=== PATIENT | male | born 1945 | race Caucasian/White ===

== ENCOUNTER → 2019-08-23 | Outpatient (CLI) | payer MEDICARE ==
[~2019-08-23] MED LIST: ACYC800 PO; ALBU90OI INH; ASPI81EC; ATOR40TA PO; AZIT250 PO; CILO100 PO; CIPR500 PO; ENAL20 PO; ENAL5; GLYMET5 PO; HYDHOMSY PO; INSDET100 SQ; INSUASPI SC; LEVFLO500 PO; LOVA20; NABU750; OPTLUBOPOA OD; PRED20 PO; PROACE100 PO; PROM25 PO; VALD20 PO; VICTOZA SQ; [UNRECOGNIZED DRUG - REMARK]; [UNRECOGNIZED DRUG - REMARK]
== END | disposition home or self-care (01) ==
LOC: LAB SHORT 11:19 → LAB EV 11:19
DX: M25.562 Pain in left knee (principal)
CPT/HCPCS: 84550; 85651

== ENCOUNTER 2020-08-27 11:47 | Emergency (ER) | payer MEDICARE ==
[~2020-08-27] VITALS: Ht 165.1 cm; Wt 106.6 kg
[~2020-08-27 11:47] MED LIST changes: +ASPI81CH PO; -ASPI81EC
[2020-08-27 12:47] LABS: BASOPHILS ABSOLUTE AUTO 0.05 K/mm3 (0.00-0.23); BASOPHILS PERCENT AUTO 0 % (0-2); EOSINOPHILS ABSOLUTE AUTO 0.34 K/mm3 (0.00-0.68); EOSINOPHILS PERCENT AUTO 3 % (0-6); Hematocrit 32.2 % (37.0-53.0); IMMATURE GRAN ABSOLUTE AUTO 0.09 K/mm3 (0.00-0.10); IMMATURE GRAN PERCENT AUTO 1 % (0-1); LYMPHOCYTES ABSOLUTE AUTO 1.67 K/mm3 (0.84-5.20); LYMPHOCYTES PERCENT AUTO 14 % (21-46); MONOCYTES ABSOLUTE AUTO 1.05 K/mm3 (0.16-1.47); MONOCYTES PERCENT AUTO 9 % (4-13); Mean Corpuscular HGB 20.8 pg (26.0-34.0); Mean Corpuscular Volume 74 fL (80-100); Mean Platelet Volume 10.2 fL (9.1-12.4); NEUTROPHILS ABSOLUTE AUTO 8.58 K/mm3 (1.96-9.15); NEUTROPHILS PERCENT AUTO 73 % (41-73); NRBC ABSOLUTE 0.02 K/mm3 (0.00-0.02); NRBC Auto 0.2 /100 WBC (0.0-0.2); Platelet Count 432 K/mm3 (150-400); RDW Coefficient Variation 17.2 % (11.7-14.2); RDW Standard Deviation 45.8 fL (35.1-46.3); Red Blood Cell Count 4.33 M/mm3 (4.30-5.90); White Blood Cell Count 11.78 K/mm3 (4.00-11.30)
[2020-08-27 13:04] LABS: Alanine Aminotransfer (ALT/SGP 22 U/L (12-78); Albumin, Blood 3.1 g/dL (3.4-5.0); Albumin/Globulin Ratio 0.8 (0.8-1.8); Alk Phos 51 U/L (50-136); Anion Gap 6 mmol/L (6-16); Aspartate Aminotrans (AST/SGOT 14 U/L (12-37); Bilirubin, Total 0.3 mg/dL (0.1-1.0); Blood Urea Nitrogen 18 mg/dL (8-24); Bun/Creatinine Ratio 25.9 (12.0-20.0); CO2, Blood 29 mmol/L (21-32); Calcium, Blood 8.7 mg/dL (8.5-10.1); Chloride, Blood 106 mmol/L (98-108); Globulin, Blood 4.1 g/dL (2.2-4.0); Glomerular Filtration Rate >60 (60-); Glucose, Blood 167 mg/dL (70-99); Potassium, Blood 4.3 mmol/L (3.5-5.5); Sodium, Blood 141 mmol/L (136-145); Total Protein, Blood 7.2 g/dL (6.4-8.2)
[2020-08-27] MEDS ORDERED: PLAVIX75 MG PO (13:10)
[2020-08-27] MEDS ORDERED: METFORMIN HCL500 M3 PO (13:10)
[2020-08-27] MEDS ORDERED: LEVEMIR FL100 UNIT/2 SC (13:12)
[2020-08-27] MEDS ORDERED: TAMSULOSIN HCL0.4 M1 PO (13:13)
[2020-08-27] MEDS ORDERED: GLIMEPIRIDE2 M2 PO (13:15)
[2020-08-27] MEDS ORDERED: METOPROLOL TART25 MG PO (13:16)
[2020-08-27] MEDS ORDERED: PANTOPRAZOLE SO20 M2 PO (13:16)
[2020-08-27] MEDS ORDERED: BUME1 PO (13:17)
[2020-08-27] MEDS ORDERED: KLOR-CON 1010 ME1 PO (13:17)
[2020-08-27] MEDS ORDERED: BUME2 PO (13:49)
== END 2020-08-27 14:11 | disposition home or self-care (01) ==
LOC: ER 11:47
PROVIDERS: Emergency Medicine
DX: I50.9 Heart failure, unspecified (principal); E11.9 Type 2 diabetes mellitus without complications; Z79.02 Long term (current) use of antithrombotics/antiplatelets; Z79.84 Long term (current) use of oral hypoglycemic drugs; Z79.899 Other long term (current) drug therapy; Z20.822 Contact with and (suspected) exposure to COVID-19; Z86.718 Personal history of other venous thrombosis and embolism; Z87.891 Personal history of nicotine dependence
CPT/HCPCS: 36415; 71045; 80053; 83880; 84484; 85025; 93005; 93010; 96374; 99285-25

== ENCOUNTER 2020-10-09 10:27 | Inpatient (IN) | payer MEDICARE ==
[~2020-10-09] VITALS: Ht 162.6 cm; Wt 110.0 kg
[~2020-10-09 10:27] MED LIST changes: +BUME1 PO; +BUME2 PO; +GLIMEPIRIDE2 M2 PO; +KLOR-CON 1010 ME1 PO; +LEVEMIR FL100 UNIT/2 SC; +METFORMIN HCL500 M3 PO; +METOPROLOL TART25 MG PO; +PANTOPRAZOLE SO20 M2 PO; +PLAVIX75 MG PO; +TAMSULOSIN HCL0.4 M1 PO
[2020-10-09 11:16] LABS: BASOPHILS ABSOLUTE AUTO 0.03 K/mm3 (0.00-0.23); BASOPHILS PERCENT AUTO 0 % (0-2); EOSINOPHILS ABSOLUTE AUTO 0.06 K/mm3 (0.00-0.68); EOSINOPHILS PERCENT AUTO 0 % (0-6); Hemoglobin 9.2 g/dL (13.5-17.5); IMMATURE GRAN ABSOLUTE AUTO 0.07 K/mm3 (0.00-0.10); IMMATURE GRAN PERCENT AUTO 0 % (0-1); LYMPHOCYTES ABSOLUTE AUTO 0.28 K/mm3 (0.84-5.20); LYMPHOCYTES PERCENT AUTO 2 % (21-46); MONOCYTES ABSOLUTE AUTO 1.22 K/mm3 (0.16-1.47); MONOCYTES PERCENT AUTO 7 % (4-13); Mean Corpuscular HGB Conc 27.9 g/dL (31.5-36.5); Mean Corpuscular Volume 72 fL (80-100); Mean Platelet Volume 9.7 fL (9.1-12.4); NEUTROPHILS ABSOLUTE AUTO 16.06 K/mm3 (1.96-9.15); NEUTROPHILS PERCENT AUTO 91 % (41-73); NRBC ABSOLUTE 0.02 K/mm3 (0.00-0.02); NRBC Auto 0.1 /100 WBC (0.0-0.2); Platelet Count 465 K/mm3 (150-400); RDW Coefficient Variation 18.6 % (11.7-14.2); RDW Standard Deviation 47.1 fL (35.1-46.3); White Blood Cell Count 17.72 K/mm3 (4.00-11.30)
[2020-10-09] MEDS ORDERED: SPIRONOLACTONE50 MG PO (11:28)
[2020-10-09] MEDS ORDERED: LISI5 PO (11:29)
[2020-10-09 11:38] LABS: Alanine Aminotransfer (ALT/SGP 17 U/L (12-78); Albumin, Blood 3.3 g/dL (3.4-5.0); Albumin/Globulin Ratio 0.8 (0.8-1.8); Alk Phos 51 U/L (50-136); Anion Gap 6 mmol/L (6-16); Aspartate Aminotrans (AST/SGOT 8 U/L (12-37); Bilirubin, Total 0.7 mg/dL (0.1-1.0); Blood Urea Nitrogen 23 mg/dL (8-24); Bun/Creatinine Ratio 30.5 (12.0-20.0); CO2, Blood 25 mmol/L (21-32); Calcium, Blood 8.3 mg/dL (8.5-10.1); Chloride, Blood 107 mmol/L (98-108); Creatinine, Blood 0.75 mg/dL (0.60-1.20); Globulin, Blood 4.3 g/dL (2.2-4.0); Glomerular Filtration Rate >60 (60-); Glucose, Blood 205 mg/dL (70-99); Potassium, Blood 4.9 mmol/L (3.5-5.5); Sodium, Blood 138 mmol/L (136-145); Total Protein, Blood 7.6 g/dL (6.4-8.2); Troponin I 0.019 ng/mL (0.000-0.040)
[2020-10-09 12:00] LABS: Source, Urine Catheter
[2020-10-09 12:11] LABS: Appearance, Urine Clear (Clear); Bilirubin, Urine Neg (Neg); Blood, Urine 2+ (Neg); Color, Urine Yellow (P-Yellow); Glucose Qualitative, Urine Neg (Neg); Ketones, Urine Neg (Neg); Leukocyte Esterase, Urine Neg (Neg); Nitrite, Urine Neg (Neg); Protein, Urine 4+ (Neg); Urobilinogen, Urine NORM (Normal)
[2020-10-09 12:19] LABS: Bacteria Rare /hpf; Red Blood Cells, Urine 0-2 /hpf (0-2); Squamous Epithelial Cells Few /hpf (Few); White Blood Cells, Urine 0-2 /hpf (0-5)
[2020-10-09 15:32] LABS: U Amphetamine Screen Not Detected; U Barbituate Screen Not Detected; U Benzodiazapine Screen Not Detected; U Buprenorphine Screen Not Detected; U Cannabinoids Screen Not Detected; U Cocaine Screen Not Detected; U Methadone Screen Not Detected; U Methamphetamine Screen Not Detected; U Opiates Screen Not Detected; U Oxycodone Screen Not Detected; U Phencyclidine Screen Not Detected; U Propoxyphene Screen Not Detected
--- NOTE | 2020-10-09 19:05 | NUR ---
ASSUMED CARE RECEIVED BEDSIDE REPORT FROM FELIX RN; PT ALERT BUT CONFUSED; DAUGHTER AT BEDSIDE; VSS; DENIES CHEST PAIN; O2 SATS >93 ON RA; PT MOVING SPORADICALLY IN BED, PULLING AT CORDS AND LINES; AID AT BEDSIDE FOR REDIRECTING PT AND SAFETY; CALL LIGHT IN REACH; BED IN LOWEST POSITION.
[2020-10-09 19:39] LABS: Influenza A, PCR NEGATIVE (NEGATIVE); Influenza B, PCR NEGATIVE (NEGATIVE); Resp Syncytial Virus, PCR NEGATIVE (NEGATIVE); SARS-Cov-2 (COVID-19) PCR, MMC NEGATIVE (NEGATIVE)
--- NOTE | 2020-10-09 19:40 | NUR ---
SHIFT SUMMARY PT ARRIVED TO UNIT AT 1830. REPORT RECIEVED PRIOR TO TRANSFER TO UNIT. VS STABLE. COVID SWAB SENT TO LAB. NO CP OR PRESSURE REPORTED. DEPENDS IN PLACE. IV PATENT AND RUNNING, SEE EMAR. REPORT GIVEN TO STEFFANIE MAGANA.
[2020-10-10 04:16] LABS: BASOPHILS ABSOLUTE AUTO 0.02 K/mm3 (0.00-0.23); BASOPHILS PERCENT AUTO 0 % (0-2); Hematocrit 29.1 % (37.0-53.0); Hemoglobin 8.2 g/dL (13.5-17.5); LYMPHOCYTES ABSOLUTE AUTO 0.45 K/mm3 (0.84-5.20); LYMPHOCYTES PERCENT AUTO 4 % (21-46); MONOCYTES PERCENT AUTO 7 % (4-13); Mean Corpuscular HGB 20.1 pg (26.0-34.0); Mean Corpuscular HGB Conc 28.2 g/dL (31.5-36.5); Mean Corpuscular Volume 71 fL (80-100); Mean Platelet Volume 9.8 fL (9.1-12.4); NRBC ABSOLUTE 0.02 K/mm3 (0.00-0.02); NRBC Auto 0.2 /100 WBC (0.0-0.2); Platelet Count 384 K/mm3 (150-400); RDW Coefficient Variation 18.6 % (11.7-14.2); RDW Standard Deviation 47.6 fL (35.1-46.3); Red Blood Cell Count 4.08 M/mm3 (4.30-5.90); White Blood Cell Count 10.49 K/mm3 (4.00-11.30)
[2020-10-10 04:18] LABS: EOSINOPHILS ABSOLUTE AUTO 0.09 K/mm3 (0.00-0.68); EOSINOPHILS PERCENT AUTO 1 % (0-6); IMMATURE GRAN ABSOLUTE AUTO 0.04 K/mm3 (0.00-0.10); IMMATURE GRAN PERCENT AUTO 0 % (0-1); NEUTROPHILS ABSOLUTE AUTO 9.19 K/mm3 (1.96-9.15); NEUTROPHILS PERCENT AUTO 88 % (41-73)
[2020-10-10 04:34] LABS: Alanine Aminotransfer (ALT/SGP 15 U/L (12-78); Albumin, Blood 2.7 g/dL (3.4-5.0); Albumin/Globulin Ratio 0.8 (0.8-1.8); Alk Phos 37 U/L (50-136); Anion Gap 5 mmol/L (6-16); Aspartate Aminotrans (AST/SGOT 12 U/L (12-37); Bilirubin, Total 0.8 mg/dL (0.1-1.0); Blood Urea Nitrogen 29 mg/dL (8-24); Bun/Creatinine Ratio 31.6 (12.0-20.0); CO2, Blood 28 mmol/L (21-32); Calcium, Blood 7.5 mg/dL (8.5-10.1); Chloride, Blood 109 mmol/L (98-108); Creatinine, Blood 0.92 mg/dL (0.60-1.20); Globulin, Blood 3.5 g/dL (2.2-4.0); Glomerular Filtration Rate >60 (60-); Glucose, Blood 89 mg/dL (70-99); Potassium, Blood 3.9 mmol/L (3.5-5.5); Sodium, Blood 142 mmol/L (136-145); Total Protein, Blood 6.2 g/dL (6.4-8.2)
--- NOTE | 2020-10-10 07:58 | NUR ---
SHIFT SUMMARY PT A&O X 2; TURNS AND FIGITS OFTEN; PULLS AT TELE AND IV LINE AT TIMES; VSS; NSR W/ PAC NOTED ON TELE W/ HR 90'S; O2 SATS >93 ON RA; SOB INCREASES W/ LAYING FLAT; AID SAT IN ROOM W/ PT FOR SHIFT ENTIRETY FOR SAFETY; NOTIFIED PROVIDER PUSHPINDER APPROXIMATELY @ 2300 OF LACTIC ACID 2.3, NO NEW ORDERS; NEW ORDER FOR HALDOL FOR AGGITAITON GIVEN, ADMINISTERED 1 X THIS SHIFT W/ MINIMAL IMPROVEMENT; PT ATTEMTED TO HAVE A BM X 2; CALL LIGHT IN REACH; BED IN LOWEST POSITION; BED ALARM ON; REPORT GIVEN TO STEFFANIE GALICIA, AID IN ROOM.
--- NOTE | 2020-10-10 17:30 | NUR ---
SUMMARY PT HAS DONE WELL TODAY, HE IS ALERT, ORIENTED 2-3, ON ROOM AIR. PT IS CLEARING MENTALLY, HE WAS ABLE TO WORK WITH PT/OT TOODAY WITH NO PROBLEMS, UP TO THE BS CHAIR FOR AWHILE. PT'S DAUGHTER IN TO VISIT THIS AFTERNOON, BED/CHAIR ALARM IS ON FOR SAFETY. PT HAS BEEN CALLING FOR ASSISTANCE PRN. JANETH & REPORT TO FELTON VALIENTE
--- NOTE | 2020-10-11 04:35 | NUR ---
SHIFT SUMMARY PT WAS ALERT, PLEASENT, AND COOPERATIVE WITH CARE. ORIENTED TO SELF, PLACE, AND EVENT. FORGETFUL AT TIMES BUT IMPROVEMENT FROM DAY SHIFT PER REPORT. VITALS WERE STABLE WITH BP 120-140'S SYSTOLIC. HR 80-90'S, TELE SHOWING SINUS RHYTHM. O2 SATS >90% ON ROOM AIR, LUNGS CLEAR AND CORSE. PT ENCOURAGED TO COUGH AND DEEP BREATH, ABLE TO CLEAR MINIMAL SPUTUM. PT STATES HE IS BREATHING MUCH BETTER THAN BEFORE. PT HAD A QUIET UNEVENTFUL NIGHT.
[2020-10-11 10:19] LABS: Vancomycin, Trough 9.8 ug/mL (5.0-10.0)
--- NOTE | 2020-10-11 16:16 | NUR ---
Pt up in chair review with patient his needs and plan of care. At this time pt seeing his primary care only he has not followed up with a docket clerk and had other conuslts with nephrology or cardiac rehab. He lives in his own home his daughter stays with him and he still drives. He denies headache, ringing in his ears or balanace disturbance. He states his vision is stable he denies any falls. He was a little hesitant on the answer suspect he has had some close calls. He has had soem issues with dyspnea at times. He denies cuase aof didfficulty swallowing or tolerating food. He has had issues with constipation and fluid balance. He has struggles with voiding frequetly and tolerating diuretics. He does not weigh himself. He states he never has. We reviewed fluid balance and managing his congestive heart failure. We reviewed advance directive, code status and assigning a decsion maker. He struggled a little with talking to his daughter about his age and condition. Therputic conversation on helping his family know and respect his wishes for the rest of his life. Gave hism advanc directive and sami reddy information and lanrehnn to call your doctor for help. He does not have a BP cuff at home suggested he get one from his doctor. Offered to help talk to his daughter. We also talked about as he progresses through life getting home health visits so has continuity of care.
--- NOTE | 2020-10-11 17:06 | NUR ---
SUMMARY PT TRANSFERRED UP FROM PCU, ORIENTED PT TO ROOM AND CALL SYSTEM, EDUCATED PT TO USE THE CALL LIGHT, BED ALARM ON FOR SAFETY, WILL CONT TO MONITOR
--- NOTE | 2020-10-11 17:36 | NUR ---
TRANSFER ORDERS ACKNOWLEDGED; REPORT GIVEN TO STEFFANIE ARCINIEGA VIA PHONE AT 1621; PT TRANSFERRED TO ROOM 342 AT 1648 WITH TELEMETRY AND NO INFUSIONS VIA WHEELCHAIR ACCOMPANIED BY TECH AND PERSONAL EFFECTS.
--- NOTE | 2020-10-12 05:00 | NUR ---
SHIFT SUMMARY NO ACUTE CHANGES TO REPORT THIS SHIFT. PT HAS RESTED MOST OF THE NIGHT, A/OX3 BUT THERE APPEARS TO BE SOME SLIGHT CONFUSION AND FORGETFULNESS AT TIMES. BED ALARM IN PLACE FOR SAFETY. PT HAS DENIED PAIN, OR NEEDS WHEN ASKED. INCONTINENT OF URINE REQUIRING LINEN CHANGES. ASSESSMENT UNCHANGED, VITALS STABLE. BED IN LOWEST POSITION, CALL LIGHT WITHIN REACH.
[2020-10-12] MEDS ORDERED: DOCU100 PO (15:27)
[2020-10-12] MEDS ORDERED: IPRAT-ALBUT 0.5-3 ML INH (15:30)
[2020-10-12] MEDS ORDERED: MIRALAX17 GM PO (15:31)
== END 2020-10-12 17:44 | disposition home health service (06) | DRG 871 ==
LOC: ER 10:27 → ERHOLD 15:37 → PCU 15:37 → MEDS 10-11 17:02
PROVIDERS: Nurse Practitioner Acute Care; Pharmacist; Physician Assistant; ADMIT Hospitalist
DX: A41.9 Sepsis, unspecified organism (principal); G92 Toxic encephalopathy; I50.22 Chronic systolic (congestive) heart failure; R65.20 Severe sepsis without septic shock; Z20.822 Contact with and (suspected) exposure to COVID-19; N40.0 Benign prostatic hyperplasia without lower urinary tract symptoms; I25.10 Atherosclerotic heart disease of native coronary artery without angina pectoris; E11.9 Type 2 diabetes mellitus without complications; K21.9 Gastro-esophageal reflux disease without esophagitis; E78.5 Hyperlipidemia, unspecified; I48.0 Paroxysmal atrial fibrillation; Z95.1 Presence of aortocoronary bypass graft; I11.0 Hypertensive heart disease with heart failure; Z86.73 Personal history of transient ischemic attack (TIA), and cerebral infarction without residual deficits; Z79.82 Long term (current) use of aspirin; Z79.899 Other long term (current) drug therapy; Z79.4 Long term (current) use of insulin; Z87.891 Personal history of nicotine dependence; Z79.02 Long term (current) use of antithrombotics/antiplatelets; Z86.718 Personal history of other venous thrombosis and embolism
CPT/HCPCS: 0241U; 36415; 51701; 70450; 71045; 74177; 80053; 80202; 81001; 82140; 82947; 83605; 83880; 84145; 84484; 85025; 87040; 93005; 93010; 93970; 94640; 94760; 96361; 96365; 96366; 96372-59; 96375; 96376; 97110; 97116; 97162; 97166; 97535; 99285-25; A9270; A9270-GY; C9113; J0290; J0696; J1630; J1650; J1940; J2060; J3370; J7030; J7050; Q9967

== ENCOUNTER 2021-01-16 10:54 | Observation (INO) | payer OTHER, MEDICARE ==
[~2021-01-16] VITALS: Ht 162.6 cm; Wt 116.5 kg
[~2021-01-16 10:54] MED LIST changes: -ASPI81CH PO; +Aspir 8181 MG PO; +DOCU100 PO; +IPRAT-ALBUT 0.5-3 ML INH; +LISI5 PO; +MIRALAX17 GM PO; +PANT40 PO; -PANTOPRAZOLE SO20 M2 PO; +SPIRONOLACTONE50 MG PO
[2021-01-16 11:50] LABS: Alanine Aminotransfer (ALT/SGP 16 U/L (12-78); Albumin, Blood 2.7 g/dL (3.4-5.0); Albumin/Globulin Ratio 0.6 (0.8-1.8); Alk Phos 49 U/L (50-136); Anion Gap 6 mmol/L (6-16); Aspartate Aminotrans (AST/SGOT 12 U/L (12-37); Bilirubin, Total 0.6 mg/dL (0.1-1.0); Blood Urea Nitrogen 16 mg/dL (8-24); Bun/Creatinine Ratio 20.7 (12.0-20.0); CO2, Blood 27 mmol/L (21-32); Calcium, Blood 8.8 mg/dL (8.5-10.1); Chloride, Blood 105 mmol/L (98-108); Creatinine, Blood 0.77 mg/dL (0.60-1.20); Globulin, Blood 4.3 g/dL (2.2-4.0); Glomerular Filtration Rate >60 (60-); Glucose, Blood 179 mg/dL (70-99); Potassium, Blood 4.7 mmol/L (3.5-5.5); Sodium, Blood 138 mmol/L (136-145)
[2021-01-16] MEDS ORDERED: NORTRIPTYLINE H25 M6 PO (12:19)
[2021-01-16 12:37] LABS: BASOPHILS ABSOLUTE AUTO 0.05 K/mm3 (0.00-0.23); BASOPHILS PERCENT AUTO 0 % (0-2); EOSINOPHILS ABSOLUTE AUTO 0.07 K/mm3 (0.00-0.68); EOSINOPHILS PERCENT AUTO 0 % (0-6); Hematocrit 32.5 % (37.0-53.0); Hemoglobin 9.4 g/dL (13.5-17.5); IMMATURE GRAN ABSOLUTE AUTO 0.23 K/mm3 (0.00-0.10); IMMATURE GRAN PERCENT AUTO 1 % (0-1); LYMPHOCYTES ABSOLUTE AUTO 1.29 K/mm3 (0.84-5.20); LYMPHOCYTES PERCENT AUTO 5 % (21-46); MONOCYTES ABSOLUTE AUTO 1.43 K/mm3 (0.16-1.47); MONOCYTES PERCENT AUTO 6 % (4-13); Mean Corpuscular HGB 20.3 pg (26.0-34.0); Mean Corpuscular HGB Conc 28.9 g/dL (31.5-36.5); Mean Corpuscular Volume 70 fL (80-100); Mean Platelet Volume 10.9 fL (9.1-12.4); NEUTROPHILS ABSOLUTE AUTO 20.72 K/mm3 (1.96-9.15); NEUTROPHILS PERCENT AUTO 87 % (41-73); Platelet Count 473 K/mm3 (150-400); RDW Coefficient Variation 18.8 % (11.7-14.2); RDW Standard Deviation 46.5 fL (35.1-46.3); Red Blood Cell Count 4.62 M/mm3 (4.30-5.90); White Blood Cell Count 23.79 K/mm3 (4.00-11.30)
[2021-01-16 15:22] LABS: Source, Urine Catheter
[2021-01-16 15:30] LABS: Appearance, Urine Clear (Clear); Bilirubin, Urine Neg (Neg); Blood, Urine 2+ (Neg); Color, Urine Yellow (P-Yellow); Glucose Qualitative, Urine 1+ (Neg); Ketones, Urine Neg (Neg); Leukocyte Esterase, Urine Neg (Neg); Nitrite, Urine Neg (Neg); Protein, Urine 4+ (Neg); Specific Gravity, Urine 1.015 (1.003-1.022); Urobilinogen, Urine NORM (Normal); pH, Urine 6.5 (5.0-8.0)
[2021-01-16] MEDS ORDERED: PREGABALIN100 MG PO (15:52)
[2021-01-16 15:54] LABS: Bacteria Few /hpf; Squamous Epithelial Cells Rare /hpf (Few); White Blood Cells, Urine 0-2 /hpf (0-5)
[2021-01-16 15:55] LABS: Hyaline Casts 0-2 /lpf (0-2)
[2021-01-16] MEDS ORDERED: ZYRTEC10 M2 PO (17:06)
[2021-01-17 06:16] LABS: BASOPHILS ABSOLUTE AUTO 0.03 K/mm3 (0.00-0.23); BASOPHILS PERCENT AUTO 0 % (0-2); EOSINOPHILS ABSOLUTE AUTO 0.23 K/mm3 (0.00-0.68); EOSINOPHILS PERCENT AUTO 2 % (0-6); Hematocrit 31.7 % (37.0-53.0); Hemoglobin 8.8 g/dL (13.5-17.5); IMMATURE GRAN ABSOLUTE AUTO 0.12 K/mm3 (0.00-0.10); IMMATURE GRAN PERCENT AUTO 1 % (0-1); LYMPHOCYTES ABSOLUTE AUTO 1.59 K/mm3 (0.84-5.20); LYMPHOCYTES PERCENT AUTO 13 % (21-46); MONOCYTES ABSOLUTE AUTO 0.86 K/mm3 (0.16-1.47); MONOCYTES PERCENT AUTO 7 % (4-13); Mean Corpuscular HGB 19.9 pg (26.0-34.0); Mean Corpuscular HGB Conc 27.8 g/dL (31.5-36.5); Mean Corpuscular Volume 72 fL (80-100); Mean Platelet Volume 10.4 fL (9.1-12.4); NEUTROPHILS ABSOLUTE AUTO 9.45 K/mm3 (1.96-9.15); NEUTROPHILS PERCENT AUTO 77 % (41-73); Platelet Count 363 K/mm3 (150-400); RDW Coefficient Variation 18.6 % (11.7-14.2); RDW Standard Deviation 47.9 fL (35.1-46.3); Red Blood Cell Count 4.42 M/mm3 (4.30-5.90); White Blood Cell Count 12.28 K/mm3 (4.00-11.30)
[2021-01-17 06:27] LABS: Alanine Aminotransfer (ALT/SGP 18 U/L (12-78); Albumin, Blood 2.6 g/dL (3.4-5.0); Albumin/Globulin Ratio 0.6 (0.8-1.8); Alk Phos 45 U/L (50-136); Anion Gap 6 mmol/L (6-16); Aspartate Aminotrans (AST/SGOT 13 U/L (12-37); Bilirubin, Total 0.4 mg/dL (0.1-1.0); Blood Urea Nitrogen 16 mg/dL (8-24); Bun/Creatinine Ratio 18.2 (12.0-20.0); CO2, Blood 27 mmol/L (21-32); Calcium, Blood 8.4 mg/dL (8.5-10.1); Chloride, Blood 104 mmol/L (98-108); Creatinine, Blood 0.88 mg/dL (0.60-1.20); Globulin, Blood 4.1 g/dL (2.2-4.0); Glomerular Filtration Rate >60 (60-); Glucose, Blood 219 mg/dL (70-99); Potassium, Blood 4.1 mmol/L (3.5-5.5); Sodium, Blood 137 mmol/L (136-145); Total Protein, Blood 6.7 g/dL (6.4-8.2)
--- NOTE | 2021-01-17 06:28 | NUR ---
SHIFT SUMMARY NO ACUTE CHANGES THIS SHIFT, NO C/O ANY KIND, BUMEX ADMIN FOR BLE EDEMA (PRN), SEVERAL INCONT BRIEF CHANGES T/O THE NIGHT, PT SLEPT INTERMIT, IS AWAKE WATCHING TV AT THIS TIME, CALL LIGHT IN REACH, BED ALARM ACTIVE, WILL CONT TO MONITOR UNTIL REPORT GIVEN TO DAY RN.
[2021-01-17 10:59] LABS: SARS-Cov-2 (COVID-19) PCR, MMC NEGATIVE (NEGATIVE)
--- NOTE | 2021-01-17 14:59 | NUR ---
DISCHARGE SUMMARY PATIENT ALERT AND ORIENTED THIS SHIFT. PATIENT WORKED WITH PT/OT THIS SHIFT WALKING IN THE HALLWAY WITH EACH. PATIENT DENIES PAIN (OTHER THAN NORMAL) THIS SHIFT. PATIENT UP WITH SBA AND WALKER IN THE ROOM. PATIENT AND DAUGHTER GIVEN DISCHARGE INSTRUCTIONS. NO QUESTIONS AT THIS TIME. IV REMOVED PRIOR TO DISCHARGE. PATIENT ASSISTED WITH DRESSING FOR DISCHARGE. PATIENT TO VEHICLE VIA WHEELCHAIR BY PUMP TECHNICIAN.
== END 2021-01-17 14:16 | disposition home or self-care (01) ==
LOC: ER 10:54 → MEDS 10:55
PROVIDERS: Emergency Medicine; Family Medicine; ADMIT Internal Medicine
DX: R53.1 Weakness (principal); R65.10 Systemic inflammatory response syndrome (SIRS) of non-infectious origin without acute organ dysfunction; M79.605 Pain in left leg; E11.9 Type 2 diabetes mellitus without complications; I25.10 Atherosclerotic heart disease of native coronary artery without angina pectoris; I48.0 Paroxysmal atrial fibrillation; K21.9 Gastro-esophageal reflux disease without esophagitis; N40.0 Benign prostatic hyperplasia without lower urinary tract symptoms; E78.5 Hyperlipidemia, unspecified; R13.10 Dysphagia, unspecified; I11.0 Hypertensive heart disease with heart failure; I50.22 Chronic systolic (congestive) heart failure; E87.2 Acidosis; M17.12 Unilateral primary osteoarthritis, left knee; W01.0XXA Fall on same level from slipping, tripping and stumbling without subsequent striking against object, initial encounter; Z79.02 Long term (current) use of antithrombotics/antiplatelets; Z79.82 Long term (current) use of aspirin; Z79.4 Long term (current) use of insulin; Z86.718 Personal history of other venous thrombosis and embolism; Z86.73 Personal history of transient ischemic attack (TIA), and cerebral infarction without residual deficits; Z95.1 Presence of aortocoronary bypass graft; Z20.822 Contact with and (suspected) exposure to COVID-19
CPT/HCPCS: 36415; 51701; 70450; 71045; 80053; 81001; 82947; 83605; 83880; 84145; 84484; 85025; 93005; 93010; 96372; 97110; 97162; 97165; 97535; A9270; G0378; J0696; J1650; J7030; U0004

== ENCOUNTER 2021-01-30 00:05 | Emergency (ER) | payer MEDICARE ==
[~2021-01-30] VITALS: Ht 162.6 cm; Wt 113.4 kg
[~2021-01-30 00:05] MED LIST changes: +NORTRIPTYLINE H25 M6 PO; +PREGABALIN100 MG PO; +ZYRTEC10 M2 PO
[2021-01-30] MEDS ORDERED: TRAZ100 PO (00:26)
[2021-01-30 00:40] LABS: BASOPHILS ABSOLUTE AUTO 0.04 K/mm3 (0.00-0.23); BASOPHILS PERCENT AUTO 0 % (0-2); EOSINOPHILS ABSOLUTE AUTO 0.15 K/mm3 (0.00-0.68); EOSINOPHILS PERCENT AUTO 1 % (0-6); Hematocrit 32.5 % (37.0-53.0); Hemoglobin 9.2 g/dL (13.5-17.5); IMMATURE GRAN ABSOLUTE AUTO 0.15 K/mm3 (0.00-0.10); IMMATURE GRAN PERCENT AUTO 1 % (0-1); LYMPHOCYTES ABSOLUTE AUTO 0.87 K/mm3 (0.84-5.20); LYMPHOCYTES PERCENT AUTO 5 % (21-46); MONOCYTES ABSOLUTE AUTO 1.08 K/mm3 (0.16-1.47); MONOCYTES PERCENT AUTO 6 % (4-13); Mean Corpuscular HGB 20.4 pg (26.0-34.0); Mean Corpuscular HGB Conc 28.3 g/dL (31.5-36.5); Mean Corpuscular Volume 72 fL (80-100); Mean Platelet Volume 9.8 fL (9.1-12.4); NEUTROPHILS ABSOLUTE AUTO 16.54 K/mm3 (1.96-9.15); NEUTROPHILS PERCENT AUTO 88 % (41-73); Platelet Count 500 K/mm3 (150-400); RDW Coefficient Variation 18.6 % (11.7-14.2); RDW Standard Deviation 47.7 fL (35.1-46.3); Red Blood Cell Count 4.52 M/mm3 (4.30-5.90); White Blood Cell Count 18.83 K/mm3 (4.00-11.30)
[2021-01-30 00:49] LABS: Anion Gap 6 mmol/L (6-16); Blood Urea Nitrogen 24 mg/dL (8-24); CO2, Blood 27 mmol/L (21-32); Calcium, Blood 8.6 mg/dL (8.5-10.1); Chloride, Blood 104 mmol/L (98-108); Creatinine, Blood 0.92 mg/dL (0.60-1.20); Glomerular Filtration Rate >60 (60-); Glucose, Blood 267 mg/dL (70-99); Potassium, Blood 4.4 mmol/L (3.5-5.5); Sodium, Blood 137 mmol/L (136-145)
[2021-01-30 01:38] LABS: Magnesium, Blood 1.3 mg/dL (1.6-2.4)
[2021-01-30 02:18] LABS: Source, Urine Clean Catch
[2021-01-30 02:20] LABS: Appearance, Urine Clear (Clear); Bilirubin, Urine Neg (Neg); Blood, Urine 2+ (Neg); Color, Urine Yellow (P-Yellow); Glucose Qualitative, Urine 3+ (Neg); Ketones, Urine Neg (Neg); Leukocyte Esterase, Urine Neg (Neg); Nitrite, Urine Neg (Neg); Protein, Urine 4+ (Neg); Urobilinogen, Urine NORM (Normal)
[2021-01-30 02:27] LABS: Bacteria Few /hpf; Squamous Epithelial Cells Not Seen /hpf (Few); White Blood Cells, Urine 0-2 /hpf (0-5)
[2021-01-30] MEDS ORDERED: MAGCHL64ER PO (02:39)
== END 2021-01-30 04:07 | disposition home or self-care (01) ==
LOC: ER 00:05
PROVIDERS: Emergency Medicine
DX: E83.42 Hypomagnesemia (principal); E11.9 Type 2 diabetes mellitus without complications; I50.9 Heart failure, unspecified; Z87.891 Personal history of nicotine dependence; Z79.82 Long term (current) use of aspirin; Z79.4 Long term (current) use of insulin; Z79.899 Other long term (current) drug therapy
CPT/HCPCS: 36415; 80048; 81001; 83735; 83880; 84145; 85025; 93005; 93010; 96365; 99284-25; J3475

== ENCOUNTER 2021-03-05 05:26 | Inpatient (IN) | payer MEDICARE ==
[~2021-03-05] VITALS: Ht 165.1 cm; Wt 113.8 kg
[~2021-03-05 05:26] MED LIST changes: +MAGCHL64ER PO; +TRAZ100 PO
[2021-03-05 06:01] LABS: BASOPHILS ABSOLUTE AUTO 0.05 K/mm3 (0.00-0.23); BASOPHILS PERCENT AUTO 0 % (0-2); EOSINOPHILS ABSOLUTE AUTO 0.33 K/mm3 (0.00-0.68); EOSINOPHILS PERCENT AUTO 2 % (0-6); Hematocrit 32.3 % (37.0-53.0); Hemoglobin 9.2 g/dL (13.5-17.5); IMMATURE GRAN ABSOLUTE AUTO 0.13 K/mm3 (0.00-0.10); IMMATURE GRAN PERCENT AUTO 1 % (0-1); LYMPHOCYTES ABSOLUTE AUTO 1.66 K/mm3 (0.84-5.20); LYMPHOCYTES PERCENT AUTO 8 % (21-46); MONOCYTES ABSOLUTE AUTO 1.35 K/mm3 (0.16-1.47); MONOCYTES PERCENT AUTO 7 % (4-13); Mean Corpuscular HGB 20.5 pg (26.0-34.0); Mean Corpuscular HGB Conc 28.5 g/dL (31.5-36.5); Mean Corpuscular Volume 72 fL (80-100); Mean Platelet Volume 9.3 fL (9.1-12.4); NEUTROPHILS ABSOLUTE AUTO 16.55 K/mm3 (1.96-9.15); NEUTROPHILS PERCENT AUTO 83 % (41-73); Platelet Count 405 K/mm3 (150-400); Red Blood Cell Count 4.48 M/mm3 (4.30-5.90); White Blood Cell Count 20.07 K/mm3 (4.00-11.30)
[2021-03-05 06:27] LABS: Alanine Aminotransfer (ALT/SGP 19 U/L (12-78); Albumin, Blood 2.7 g/dL (3.4-5.0); Albumin/Globulin Ratio 0.6 (0.8-1.8); Alk Phos 46 U/L (50-136); Anion Gap 4 mmol/L (6-16); Aspartate Aminotrans (AST/SGOT 9 U/L (12-37); Bilirubin, Total 0.5 mg/dL (0.1-1.0); Blood Urea Nitrogen 17 mg/dL (8-24); Bun/Creatinine Ratio 20.2 (12.0-20.0); CO2, Blood 28 mmol/L (21-32); CPK Creatine Kinase 73 U/L (39-308); Calcium, Blood 8.3 mg/dL (8.5-10.1); Chloride, Blood 105 mmol/L (98-108); Creatinine, Blood 0.84 mg/dL (0.60-1.20); Globulin, Blood 4.2 g/dL (2.2-4.0); Glomerular Filtration Rate >60 (60-); Glucose, Blood 199 mg/dL (70-99); Potassium, Blood 4.2 mmol/L (3.5-5.5); Sodium, Blood 137 mmol/L (136-145); Total Protein, Blood 6.9 g/dL (6.4-8.2); Troponin I <0.015 ng/mL (0.000-0.040)
[2021-03-05 08:09] LABS: SARS-Cov-2 (COVID-19) PCR, MMC NEGATIVE (NEGATIVE)
[2021-03-05 08:52] LABS: Percent Saturation 9.4 % (20.0-50.0)
[2021-03-05 08:54] LABS: Source, Urine Voided
[2021-03-05 08:57] LABS: Appearance, Urine Clear (Clear); Bilirubin, Urine Neg (Neg); Blood, Urine 1+ (Neg); Color, Urine Yellow (P-Yellow); Glucose Qualitative, Urine Neg (Neg); Ketones, Urine Neg (Neg); Leukocyte Esterase, Urine Neg (Neg); Nitrite, Urine Neg (Neg); Protein, Urine 3+ (Neg); Urobilinogen, Urine NORM (Normal)
[2021-03-05 09:10] LABS: Red Blood Cells, Urine 0-2 /hpf (0-2); White Blood Cells, Urine 0-2 /hpf (0-5)
[2021-03-05 09:12] LABS: Amorphous Heavy (0-Heavy); Bacteria Rare /hpf; Squamous Epithelial Cells Rare /hpf (Few); Transitional Epithelial Cells Rare /hpf (0-Rare)
--- NOTE | 2021-03-05 18:27 | NUR ---
SHIFT SUMMARY: PT A/O X 3, 1 PERSON ASSIST WITH GAIT BELT PIVOT TX TO BED/CHAIR AT THIS TIME. PT HAS SORES/SCABS ON LEFT FOOT WITH SCANT PURULENT DRAINAGE FROM ONE SORE. PT REPORTS PAIN WITH PALPATION. 1+ PITTING EDEMA TO LEFT FOOT. PT HAS NON PRODUCTIVE COUGH. NO ACUTE CHANGES THIS SHIFT.
--- NOTE | 2021-03-05 18:32 | NUR ---
STAFF REPORTED PT COUGHED UP HIS DINNER, PT REPORTED HE HAD DIFFICULTY SWALLOWING THE RICE. PLACED NURSE NOTIFICATION TO SUPERVISE MEALS.
--- NOTE | 2021-03-05 23:23 | NUR ---
PT OBSERVED TO CONTINUE RETAINING URINE AFTER VOIDING AND HE WAS PREVIOULSY ST.CATH'D IN ER FOR 600 MLS. PT HAD 125 MLS UO BUT PVR WAS 454 MLS. ALERTED W/NEW ORDERS RECIEVED FOR BLADDER SCAN QSHIFT, ST.CATH FOR PVR>400 MLS. OK'D LEAVING SANTOS IN PLACE IF PATIENT PREFERRED IT. PLAN TO DISCUSS W/PATIENT AND DETERMINE ST.CATH VS. SANTOS FOR PERSISTANT RETENTION ISSUES.
[2021-03-06 04:51] LABS: BASOPHILS ABSOLUTE AUTO 0.06 K/mm3 (0.00-0.23); BASOPHILS PERCENT AUTO 1 % (0-2); EOSINOPHILS ABSOLUTE AUTO 0.56 K/mm3 (0.00-0.68); EOSINOPHILS PERCENT AUTO 5 % (0-6); Hematocrit 32.9 % (37.0-53.0); IMMATURE GRAN ABSOLUTE AUTO 0.09 K/mm3 (0.00-0.10); IMMATURE GRAN PERCENT AUTO 1 % (0-1); LYMPHOCYTES ABSOLUTE AUTO 1.63 K/mm3 (0.84-5.20); LYMPHOCYTES PERCENT AUTO 15 % (21-46); MONOCYTES ABSOLUTE AUTO 0.87 K/mm3 (0.16-1.47); MONOCYTES PERCENT AUTO 8 % (4-13); Mean Corpuscular HGB 19.9 pg (26.0-34.0); Mean Corpuscular HGB Conc 27.4 g/dL (31.5-36.5); Mean Corpuscular Volume 73 fL (80-100); Mean Platelet Volume 10.3 fL (9.1-12.4); NEUTROPHILS ABSOLUTE AUTO 7.47 K/mm3 (1.96-9.15); NEUTROPHILS PERCENT AUTO 70 % (41-73); Platelet Count 339 K/mm3 (150-400); RDW Coefficient Variation 19.6 % (11.7-14.2); RDW Standard Deviation 50.2 fL (35.1-46.3); Red Blood Cell Count 4.52 M/mm3 (4.30-5.90); White Blood Cell Count 10.68 K/mm3 (4.00-11.30)
[2021-03-06 05:14] LABS: Alanine Aminotransfer (ALT/SGP 17 U/L (12-78); Albumin, Blood 2.6 g/dL (3.4-5.0); Albumin/Globulin Ratio 0.6 (0.8-1.8); Alk Phos 44 U/L (50-136); Anion Gap 4 mmol/L (6-16); Aspartate Aminotrans (AST/SGOT 14 U/L (12-37); Bilirubin, Total 0.5 mg/dL (0.1-1.0); Blood Urea Nitrogen 15 mg/dL (8-24); Bun/Creatinine Ratio 17.1 (12.0-20.0); CO2, Blood 27 mmol/L (21-32); Calcium, Blood 8.5 mg/dL (8.5-10.1); Chloride, Blood 105 mmol/L (98-108); Creatinine, Blood 0.88 mg/dL (0.60-1.20); Globulin, Blood 4.3 g/dL (2.2-4.0); Glomerular Filtration Rate >60 (60-); Glucose, Blood 213 mg/dL (70-99); Potassium, Blood 4.3 mmol/L (3.5-5.5); Sodium, Blood 136 mmol/L (136-145); Total Protein, Blood 6.9 g/dL (6.4-8.2)
--- NOTE | 2021-03-06 05:52 | NUR ---
PT HAD ATTEND CHANGED FOR X3 INCONTINENT VOIDS W/BLADDER SCAN PVR 776 MLS. 14 FR. COUDE SANTOS INSERTED PER MD ORDER () W/STERILE TECHNIQUE MAINTAINED. PT REQUESTED TO HAVE INDWELLING CATHETER LEFT IN PLACE VS ST.CATHS FOR PVR >400 MLS. PT HAS BPH ON FLOMAX W/KNOWN RETENTION ISSUES. UA OBTAINED AND SENT PER PROTOCOL, PENDING RESULTS. HE REPORTS RELIEF AND FEELING "SO MUCH BETTER NOW W/PRESSURE GONE" AND ADMITTED TO NOT REALIZING "HOW UNCOMFORTABLE IT WAS BEFORE".
--- NOTE | 2021-03-06 06:01 | NUR ---
SUMMARY: PT A/OX3, IS PLEASANT/COOPERATIVE W/CARE AND CALLS APPROPRIATELY TO SPECIFY NEEDS. HE'S 1-2PA W/GB OOB AND ASSISTED W/REPOSITIONING D/T WEAKNESS. HE USED URINAL X1 AND HAD X3 URINARY INCONTINENCE W/RETENTION OBSERVED. PVR 776 MLS W/RX OBTAINED FOR CATH>400 MLS. COUDE SANTOS INSERTED AND LEFT IN PLACE PER PT'S PREFERENCE AND OK. HE REPORTED RELIEF UPON EMPTYING OF BLADDER AND ADMITTED TO NOT REALIZINGE HOW UNCOMFORTABLE HE'D BEEN FROM URINARY RETENTION. NO SOB OBSERVED AND RESPS E/U ON RA W/SPO2 WNL. ASPIRATION PREC'S MAINTAINED AND PT TOLERATED PILLS WHOLE IN APPLESAUCE, ST CX PENDING. 1500 FREE WATER RESTRICT FOLLOWED. PT DENIED COMPLAINTS/CONCERNS. MEPILEX PATENT TO L.FOOT SORE. NO ACUTE CHANGES, VSS/AFEBRILE. WCTM/REPORT TO DAY RN.
[2021-03-06 06:02] LABS: Source, Urine Catheter
[2021-03-06 06:06] LABS: Bilirubin, Urine Neg (Neg); Blood, Urine 3+ (Neg); Glucose Qualitative, Urine Neg (Neg); Ketones, Urine Neg (Neg); Leukocyte Esterase, Urine Neg (Neg); Nitrite, Urine Neg (Neg); Protein, Urine 3+ (Neg); Specific Gravity, Urine 1.005 (1.003-1.022); Urobilinogen, Urine NORM (Normal)
[2021-03-06 06:18] LABS: Color, Urine Yellow (P-Yellow)
[2021-03-06 06:19] LABS: Appearance, Urine Clear (Clear)
[2021-03-06 06:24] LABS: Granular Casts Not Seen /lpf (0); White Blood Cells, Urine 0-2 /hpf (0-5)
[2021-03-06 06:25] LABS: Squamous Epithelial Cells Rare /hpf (Few)
[2021-03-06 06:32] LABS: Bacteria Not Seen /hpf
--- NOTE | 2021-03-06 09:02 | NUR ---
RN NOTE: OBSERVE PT WHILE EATING BREAKFAST. HE ATE HIS YOPGURT PARFAIT AND DID NOT HAVE ANY EPISODES OF SWALLOWING DIFFICULTY OR CHOKING EPISODES.
--- NOTE | 2021-03-06 16:34 | NUR ---
DOPPLAR OF L FOOT AND R FOOT PEDAL AND TIBIAL PULSES FAINT BUT AUDIBLE.
--- NOTE | 2021-03-06 20:12 | NUR ---
PT DAUGHTER BRYAN UPDATED. PER BRYAN PT BASELINE MENTATION SINCE HIS STROKE ONE YEAR AGO HE HAS HAD TROUBLE REMEMBERING CERTAIN THINGS, IT JUST DEPENDS ON THE DAY. PT DOES NOT TAKE HIS BUMEX LIKE HE SHOULD BECAUSE HE DOES NOT LIKE TO GO TO THE BATHROOM ALL DAY BECAUSE HIS KNEES HURT. SHE HAS NOT FOLLOWED UP WITH PCP REGARDING CONCERNS OF SORE ON LEFT FOOT, MEMORY ISSUES OR REFUSALS TO TAKE BUMEX. SHE ALSO STATED SHE WAS UNAWARE HIS A1C IS ELEVATED AND REPORTS HE EATS A "LOT OF CANDY AT HOME".
--- NOTE | 2021-03-07 04:30 | NUR ---
SUMMARY PT HAD NOTED INCREASED CONFUSION AND ATTEMPTING TO GET OUT OF BED. PROVIDER CALLED AND RESTRAINT ORDER WAS ADDED. PT HIGH FALL RISK. PT SANTOS DRAINING TO GRAVITY. PT IN NODISTRESS. CALL LIGHT IN REACH AND BED ALARM ON.
[2021-03-07 05:11] LABS: BASOPHILS ABSOLUTE AUTO 0.05 K/mm3 (0.00-0.23); BASOPHILS PERCENT AUTO 1 % (0-2); EOSINOPHILS ABSOLUTE AUTO 0.71 K/mm3 (0.00-0.68); EOSINOPHILS PERCENT AUTO 6 % (0-6); Hematocrit 32.3 % (37.0-53.0); Hemoglobin 9.3 g/dL (13.5-17.5); IMMATURE GRAN PERCENT AUTO 1 % (0-1); LYMPHOCYTES ABSOLUTE AUTO 1.73 K/mm3 (0.84-5.20); LYMPHOCYTES PERCENT AUTO 16 % (21-46); MONOCYTES ABSOLUTE AUTO 0.82 K/mm3 (0.16-1.47); MONOCYTES PERCENT AUTO 7 % (4-13); Mean Corpuscular HGB 20.6 pg (26.0-34.0); Mean Corpuscular HGB Conc 28.8 g/dL (31.5-36.5); Mean Corpuscular Volume 72 fL (80-100); Mean Platelet Volume 9.6 fL (9.1-12.4); NEUTROPHILS ABSOLUTE AUTO 7.65 K/mm3 (1.96-9.15); NEUTROPHILS PERCENT AUTO 69 % (41-73); Platelet Count 435 K/mm3 (150-400); RDW Coefficient Variation 19.2 % (11.7-14.2); RDW Standard Deviation 48.3 fL (35.1-46.3); Red Blood Cell Count 4.52 M/mm3 (4.30-5.90); White Blood Cell Count 11.06 K/mm3 (4.00-11.30)
[2021-03-07 05:32] LABS: Albumin, Blood 2.7 g/dL (3.4-5.0); Anion Gap 4 mmol/L (6-16); Blood Urea Nitrogen 13 mg/dL (8-24); Bun/Creatinine Ratio 14.1 (12.0-20.0); CO2, Blood 29 mmol/L (21-32); Calcium, Blood 8.9 mg/dL (8.5-10.1); Chloride, Blood 103 mmol/L (98-108); Creatinine, Blood 0.92 mg/dL (0.60-1.20); Glomerular Filtration Rate >60 (60-); Glucose, Blood 233 mg/dL (70-99); Magnesium, Blood 2.2 mg/dL (1.6-2.4); Phosphorus, Blood 3.5 mg/dL (2.5-4.9); Potassium, Blood 4.3 mmol/L (3.5-5.5); Sodium, Blood 136 mmol/L (136-145)
--- NOTE | 2021-03-07 16:28 | NUR ---
PT HAS MOMENTS OF CONFUSION. HE IS ORIENTED X2-3. DIET CHANGED TO MECH SOFT. PT ENCOURAGED TO TUCK AND SWALLOW TO AVOID ASPIRATION. PT IS PLEASANT AND HAS AHD NO AGGRESSION THIS SHIFT. CALL LIGHT WITHIN REACH. WCTM
--- NOTE | 2021-03-08 04:48 | NUR ---
RACING BOARD MARKER SUMMARY PT A/O X2-3. SLEPT WELL TONIGHT. DENIES PAIN, NAUSEA, SOB. MEDS ONE A TIME WITH APPLESAUCE. ON 1,500 ML FREE WATER RESTRICTION. SANTOS PATENT AND DRAINING DARK URINE TO GRAVITY. BED ALARM ON, CALL LIGHT WITHIN REACH, WILL CONTINUE TO MONITOR.
--- NOTE | 2021-03-08 17:27 | NUR ---
PT WAS AXO X3 TODAY, PLEASANT AND COOPERATIVE WITH CARE. DOING WELL ON ROOM AIR, MAINTING SAT OF 95% ON TRANSFER FROM BED TO CHAIR. INSULINE CHANGED TO MEDIUM SLIDING SCALE AND SEMGLEE DOSE INCREASED BLOOD SUGARS CLIMBED PROGRESSIVLY THROUGHOUT THE DAY. PT DENIES PAIN, CHEST PAIN, OR SOB. WILL CONTINUE TO MONITOR.
--- NOTE | 2021-03-09 04:34 | NUR ---
SHIFT SUMMARY PT ADMIITED FOR PNUEMONIA. ON ROOM AIR, SATS ABOVE 90% THROUGHOUT SHIFT. CHRISTIANA VEST ON, PT RESTED THROUGHOUT THE NIGHT. NO SIGNIFICANT CHANGES THROUGHOUT SHIFT. PT AAOX3. BED ALARM ON, BED IN LOWEST POSITION.
[2021-03-09] MEDS ORDERED: AMOCLA500 PO (10:09)
[2021-03-09] MEDS ORDERED: Vitamin B-121000 MCG PO (10:10)
[2021-03-09] MEDS ORDERED: LACT PO (10:11)
[2021-03-09] MEDS ORDERED: B-100 COMPLEX100 MG PO (10:14)
--- NOTE | 2021-03-09 13:41 | NUR ---
PATIENT D/C'D TO HOME VIA W/C TRANSPORT. DC INSTRUCTIONS DISCUSSED WITH PATIENT AND CALL TO PATIENTS DAUGHTER MADE TO FURTHER DISCUSS MEDICATIONS. COPY OF DC INSTRUCTIONS, MEDICATIONS AND EDUCATION SENT WITH PATIENT. F/U APPOINTMENT MADE WITH DR. SILVA. PATIENT DENIES ANY FURTHER QUESTIONS OR CONCERNS.
== END 2021-03-09 13:40 | disposition home health service (06) | DRG 291 ==
LOC: ER 05:26 → MEDS 05:27
PROVIDERS: Emergency Medicine; Internal Medicine; Student in an Organized Health Care Education/Training Program; ADMIT Hospitalist
DX: I11.0 Hypertensive heart disease with heart failure (principal); J18.9 Pneumonia, unspecified organism; N13.8 Other obstructive and reflux uropathy; I50.23 Acute on chronic systolic (congestive) heart failure; Z20.822 Contact with and (suspected) exposure to COVID-19; I48.0 Paroxysmal atrial fibrillation; I25.10 Atherosclerotic heart disease of native coronary artery without angina pectoris; E78.5 Hyperlipidemia, unspecified; E11.9 Type 2 diabetes mellitus without complications; I27.20 Pulmonary hypertension, unspecified; D50.9 Iron deficiency anemia, unspecified; Z68.39 Body mass index [BMI] 39.0-39.9, adult; I34.0 Nonrheumatic mitral (valve) insufficiency; N40.1 Benign prostatic hyperplasia with lower urinary tract symptoms; R13.10 Dysphagia, unspecified; E66.01 Morbid (severe) obesity due to excess calories; M17.11 Unilateral primary osteoarthritis, right knee; M17.12 Unilateral primary osteoarthritis, left knee; G47.00 Insomnia, unspecified; E53.8 Deficiency of other specified B group vitamins; K21.9 Gastro-esophageal reflux disease without esophagitis; Z95.1 Presence of aortocoronary bypass graft; Z86.73 Personal history of transient ischemic attack (TIA), and cerebral infarction without residual deficits; Z79.82 Long term (current) use of aspirin; Z79.4 Long term (current) use of insulin; Z79.899 Other long term (current) drug therapy; Z86.718 Personal history of other venous thrombosis and embolism; W06.XXXA Fall from bed, initial encounter
CPT/HCPCS: 36415; 51701; 71045; 74230; 80053; 80069; 81001; 82550; 82607; 82728; 82746; 82947; 83036; 83540; 83550; 83605; 83735; 83880; 84145; 84484; 85025; 87040; 92526; 92610; 92611; 93005; 93010; 94640; 94760; 94762; 96365-59; 96366-59; 96375-59; 97110; 97116; 97162; 97166; 97530; 97535; 99285-25; A9270; C8929; J0456; J0696; J1644; J1815; J1940; J2916; J3420; J7050; Q9957; U0004

== ENCOUNTER 2021-03-20 13:40 | Emergency (ER) | payer MEDICARE ==
[~2021-03-20] VITALS: Ht 160 cm; Wt 113.4 kg
[~2021-03-20 13:40] MED LIST changes: +AMOCLA500 PO; +B-100 COMPLEX100 MG PO; +LACT PO; +Vitamin B-121000 MCG PO
[2021-03-20 14:36] LABS: BASOPHILS ABSOLUTE AUTO 0.03 K/mm3 (0.00-0.23); BASOPHILS PERCENT AUTO 0 % (0-2); EOSINOPHILS ABSOLUTE AUTO 0.17 K/mm3 (0.00-0.68); EOSINOPHILS PERCENT AUTO 2 % (0-6); Hematocrit 36.2 % (37.0-53.0); Hemoglobin 10.4 g/dL (13.5-17.5); IMMATURE GRAN ABSOLUTE AUTO 0.15 K/mm3 (0.00-0.10); IMMATURE GRAN PERCENT AUTO 2 % (0-1); LYMPHOCYTES PERCENT AUTO 18 % (21-46); MONOCYTES ABSOLUTE AUTO 0.65 K/mm3 (0.16-1.47); MONOCYTES PERCENT AUTO 8 % (4-13); Mean Corpuscular HGB 21.5 pg (26.0-34.0); Mean Corpuscular HGB Conc 28.7 g/dL (31.5-36.5); Mean Corpuscular Volume 75 fL (80-100); Mean Platelet Volume 10.1 fL (9.1-12.4); NEUTROPHILS ABSOLUTE AUTO 5.75 K/mm3 (1.96-9.15); NEUTROPHILS PERCENT AUTO 70 % (41-73); Platelet Count 349 K/mm3 (150-400); RDW Coefficient Variation 24.9 % (11.7-14.2); RDW Standard Deviation 65.3 fL (35.1-46.3); Red Blood Cell Count 4.83 M/mm3 (4.30-5.90); White Blood Cell Count 8.25 K/mm3 (4.00-11.30)
[2021-03-20 15:03] LABS: Alanine Aminotransfer (ALT/SGP 17 U/L (12-78); Albumin, Blood 2.3 g/dL (3.4-5.0); Albumin/Globulin Ratio 0.5 (0.8-1.8); Alk Phos 52 U/L (50-136); Anion Gap 8 mmol/L (6-16); Aspartate Aminotrans (AST/SGOT 18 U/L (12-37); Bilirubin, Total 0.3 mg/dL (0.1-1.0); Blood Urea Nitrogen 24 mg/dL (8-24); Bun/Creatinine Ratio 26.3 (12.0-20.0); CO2, Blood 23 mmol/L (21-32); Calcium, Blood 8.5 mg/dL (8.5-10.1); Chloride, Blood 105 mmol/L (98-108); Creatinine, Blood 0.91 mg/dL (0.60-1.20); Globulin, Blood 4.8 g/dL (2.2-4.0); Glomerular Filtration Rate >60 (60-); Glucose, Blood 270 mg/dL (70-99); Potassium, Blood 4.9 mmol/L (3.5-5.5); Sodium, Blood 136 mmol/L (136-145); Total Protein, Blood 7.1 g/dL (6.4-8.2); Troponin I <0.015 ng/mL (0.000-0.040)
== END 2021-03-20 19:48 | disposition home or self-care (01) ==
LOC: ER 13:40
PROVIDERS: Emergency Medicine
DX: R10.13 Epigastric pain (principal); I11.0 Hypertensive heart disease with heart failure; I50.9 Heart failure, unspecified; E11.9 Type 2 diabetes mellitus without complications; I48.0 Paroxysmal atrial fibrillation; N40.0 Benign prostatic hyperplasia without lower urinary tract symptoms; I25.10 Atherosclerotic heart disease of native coronary artery without angina pectoris; K21.9 Gastro-esophageal reflux disease without esophagitis; Z79.899 Other long term (current) drug therapy; Z79.82 Long term (current) use of aspirin; Z79.02 Long term (current) use of antithrombotics/antiplatelets; Z79.4 Long term (current) use of insulin; Z86.73 Personal history of transient ischemic attack (TIA), and cerebral infarction without residual deficits; Z87.891 Personal history of nicotine dependence
CPT/HCPCS: 36415; 71045; 80053; 83880; 84484; 85025; 93005; 93010; 99285-25

== ENCOUNTER 2021-04-21 06:47 | Day surgery (SDC) | payer MEDICARE ==
[~2021-04-21] VITALS: Ht 160 cm; Wt 111.0 kg
--- NOTE | 2021-04-21 19:26 | NUR ---
PT AND DAUGHTER VERBALIZED UNDERSTANDING OF WRITTEN AND VERBAL D/C INST. IV REMOVED. PT TAKEN OUT OF THE HRT CENTER VIA AMB.
== END 2021-04-21 19:30 | disposition home or self-care (01) ==
LOC: MHTC 06:47
DX: I70.213 Atherosclerosis of native arteries of extremities with intermittent claudication, bilateral legs (principal); L98.499 Non-pressure chronic ulcer of skin of other sites with unspecified severity; T49.0X5A Adverse effect of local antifungal, anti-infective and anti-inflammatory drugs, initial encounter; I25.10 Atherosclerotic heart disease of native coronary artery without angina pectoris; I50.20 Unspecified systolic (congestive) heart failure; Z95.1 Presence of aortocoronary bypass graft; K21.9 Gastro-esophageal reflux disease without esophagitis; E11.40 Type 2 diabetes mellitus with diabetic neuropathy, unspecified; Z87.891 Personal history of nicotine dependence; Z79.82 Long term (current) use of aspirin; Z79.4 Long term (current) use of insulin; Z79.899 Other long term (current) drug therapy
CPT/HCPCS: 76937; 85347; 93925; 99152; 99153; C1724; C1725; C1753; C1760; C1769; C1887; C1894; J1644; J2250; J3010; J7030; J7050; Q9967

== ENCOUNTER 2021-05-26 06:01 | Observation (INO) | payer MEDICARE ==
[~2021-05-26] VITALS: Ht 160 cm; Wt 116.1 kg
[~2021-05-26 06:01] MED LIST changes: +BENADRYL25 MG PO; +ESCI10 PO; +FERSU300 PO; +NORT25 PO; -NORTRIPTYLINE H25 M6 PO; +TRIA15CR3 TOP
[2021-05-26 20:48] LABS: BASOPHILS ABSOLUTE AUTO 0.08 K/mm3 (0.00-0.23); BASOPHILS PERCENT AUTO 1 % (0-2); EOSINOPHILS ABSOLUTE AUTO 0.22 K/mm3 (0.00-0.68); EOSINOPHILS PERCENT AUTO 1 % (0-6); Hematocrit 33.7 % (37.0-53.0); Hemoglobin 10.2 g/dL (13.5-17.5); IMMATURE GRAN ABSOLUTE AUTO 0.14 K/mm3 (0.00-0.10); IMMATURE GRAN PERCENT AUTO 1 % (0-1); LYMPHOCYTES ABSOLUTE AUTO 1.67 K/mm3 (0.84-5.20); LYMPHOCYTES PERCENT AUTO 10 % (21-46); MONOCYTES PERCENT AUTO 8 % (4-13); Mean Corpuscular HGB 25.6 pg (26.0-34.0); Mean Corpuscular HGB Conc 30.3 g/dL (31.5-36.5); Mean Corpuscular Volume 85 fL (80-100); Mean Platelet Volume 11.3 fL (9.1-12.4); NEUTROPHILS ABSOLUTE AUTO 13.44 K/mm3 (1.96-9.15); NEUTROPHILS PERCENT AUTO 80 % (41-73); Platelet Count 371 K/mm3 (150-400); RDW Coefficient Variation 19.1 % (11.7-14.2); RDW Standard Deviation 58.5 fL (35.1-46.3); Red Blood Cell Count 3.98 M/mm3 (4.30-5.90); White Blood Cell Count 16.85 K/mm3 (4.00-11.30)
[2021-05-26 22:38] LABS: Source, Urine Catheter
[2021-05-26 22:41] LABS: Bilirubin, Urine Neg (Neg); Blood, Urine 1+ (Neg); Glucose Qualitative, Urine Neg (Neg); Ketones, Urine Neg (Neg); Leukocyte Esterase, Urine Neg (Neg); Nitrite, Urine Neg (Neg); Protein, Urine 3+ (Neg); Specific Gravity, Urine 1.015 (1.003-1.022); Urobilinogen, Urine NORM (Normal)
[2021-05-26 22:51] LABS: Appearance, Urine Clear (Clear); Color, Urine Yellow (P-Yellow)
[2021-05-26 23:03] LABS: Bacteria Not Seen /hpf; Red Blood Cells, Urine 0-2 /hpf (0-2); Squamous Epithelial Cells Rare /hpf (Few); White Blood Cells, Urine Not Seen /hpf (0-5)
--- NOTE | 2021-05-27 00:59 | NUR ---
PATIENT ARRIVED AT 4 FROM [facility], PATIENT WAS ALERT AND ABLE TO ANSWER QUESTIONS AND FOLLOW COMMANDS. UPON GETTING BEDSIDE REPORT, NOTED RIGHT FEMORAL SITE OOZING SIGNIFICANT AMOUNT OF BLOOD, CLARISA VALIENTE APPLIED PRESSURE TO THE SITE FOR 10 MINS, RELIEVED BY EMMA VALIENTE WHO APPLIED PRESSURE FOR 15 MINS AT 2135 FEM STOP WAS APPLIED AND SET AT 124. DR. TYLER CAME TO BEDSIDE DID AN ASSESSMENT HAD THE PRESSURE DROP TO 79, AT 2314 DROPPED TO 39, AND AT 0005 ALL PRESSURE DEFLATED IN PLACE MONITORED AND DEVICED MOVED AT 0107. PATIENT ANXIOUS AT TIMES, RESTLESS. SWALLOW EVAL DONE, ABLE TO SUCK ON ICE CHIPS AUSTEN NOTED, PATIENT EXPRESSED HAS AN APPOINTMENT " TO HAVE A SCOPE I HAVE TO BE CAREFUL WHEN I EAT."
--- NOTE | 2021-05-27 03:14 | NUR ---
PATIENT NOTED NO PULSES RLE COOL TO TOUCH DR. TYLER CALLED NO ORDERS AT THIS TIME.
[2021-05-27 05:02] LABS: BASOPHILS ABSOLUTE AUTO 0.06 K/mm3 (0.00-0.23); BASOPHILS PERCENT AUTO 0 % (0-2); EOSINOPHILS ABSOLUTE AUTO 0.05 K/mm3 (0.00-0.68); EOSINOPHILS PERCENT AUTO 0 % (0-6); Hematocrit 29.4 % (37.0-53.0); Hemoglobin 8.9 g/dL (13.5-17.5); IMMATURE GRAN ABSOLUTE AUTO 0.11 K/mm3 (0.00-0.10); IMMATURE GRAN PERCENT AUTO 1 % (0-1); LYMPHOCYTES ABSOLUTE AUTO 1.49 K/mm3 (0.84-5.20); LYMPHOCYTES PERCENT AUTO 11 % (21-46); MONOCYTES ABSOLUTE AUTO 1.27 K/mm3 (0.16-1.47); MONOCYTES PERCENT AUTO 9 % (4-13); Mean Corpuscular HGB 25.6 pg (26.0-34.0); Mean Corpuscular HGB Conc 30.3 g/dL (31.5-36.5); Mean Corpuscular Volume 85 fL (80-100); Mean Platelet Volume 11.4 fL (9.1-12.4); NEUTROPHILS ABSOLUTE AUTO 11.22 K/mm3 (1.96-9.15); NEUTROPHILS PERCENT AUTO 79 % (41-73); Platelet Count 401 K/mm3 (150-400); RDW Standard Deviation 58.4 fL (35.1-46.3); Red Blood Cell Count 3.48 M/mm3 (4.30-5.90)
[2021-05-27] MEDS ORDERED: XARELTO2.5 M1 PO (12:09)
[2021-05-27] MEDS ORDERED: PERCOCET 10-321 EAC1 (12:10)
[2021-05-27] MEDS ORDERED: ROXICODONE5 MG PO (12:11)
--- NOTE | 2021-05-27 13:45 | NUR ---
PT DISCHARGED HOME IN THE CARE OF HIS DTR VIA WHEELCHAIR. ALL BELONGINGS SENT WITH PT. DISCHARGE TEACHING, MEDICATION LIST AND FOLLOW UP APPOINTMENTS REVIEWED, PT'S DTR VERBALIZES UNDERSTANDING AND HAS NO QUESTIONS OR CONCERNS. XARELTO SAMPLES PROVIDED, PAPER SCRIPT FOR OXYCODONE PROVIDED, STENT CARDS SENT HOME WITH PT. IV'S REMOVED. NO OTHER DISCHARGE NEEDS IDENTIFIED AT THIS TIME.
== END 2021-05-27 13:45 | disposition home or self-care (01) ==
LOC: MHTC 06:01 → PCU 17:41
PROVIDERS: ADMIT Internal Medicine
DX: E11.51 Type 2 diabetes mellitus with diabetic peripheral angiopathy without gangrene (principal); I70.213 Atherosclerosis of native arteries of extremities with intermittent claudication, bilateral legs; I70.229 Atherosclerosis of native arteries of extremities with rest pain, unspecified extremity; I50.9 Heart failure, unspecified; E11.40 Type 2 diabetes mellitus with diabetic neuropathy, unspecified; K21.9 Gastro-esophageal reflux disease without esophagitis; Z88.8 Allergy status to other drugs, medicaments and biological substances; Z79.82 Long term (current) use of aspirin; Z79.4 Long term (current) use of insulin; Z79.899 Other long term (current) drug therapy
CPT/HCPCS: 36415; 76937; 81001; 82947; 85025; 85347; 99152; 99153; A9270; C1725; C1753; C1760; C1769; C1874; C1885; C1887; C1894; C2623; C9113; J1644; J1815; J2250; J2270; J3010; J7030; J7040; J7050; Q9967

== ENCOUNTER 2021-05-28 21:19 | Inpatient (IN) | payer MEDICARE ==
[~2021-05-28] VITALS: Ht 160 cm; Wt 155.5 kg
[~2021-05-28 21:19] MED LIST changes: +PERCOCET 10-321 EAC1; +ROXICODONE5 MG PO; +XARELTO2.5 M1 PO
[2021-05-28 21:56] LABS: BASOPHILS ABSOLUTE AUTO 0.07 K/mm3 (0.00-0.23); BASOPHILS PERCENT AUTO 0 % (0-2); EOSINOPHILS ABSOLUTE AUTO 0.19 K/mm3 (0.00-0.68); EOSINOPHILS PERCENT AUTO 1 % (0-6); Hematocrit 28.2 % (37.0-53.0); Hemoglobin 8.7 g/dL (13.5-17.5); IMMATURE GRAN PERCENT AUTO 1 % (0-1); LYMPHOCYTES ABSOLUTE AUTO 1.03 K/mm3 (0.84-5.20); LYMPHOCYTES PERCENT AUTO 6 % (21-46); MONOCYTES ABSOLUTE AUTO 0.96 K/mm3 (0.16-1.47); MONOCYTES PERCENT AUTO 6 % (4-13); Mean Corpuscular HGB Conc 30.9 g/dL (31.5-36.5); Mean Corpuscular Volume 84 fL (80-100); NEUTROPHILS ABSOLUTE AUTO 13.64 K/mm3 (1.96-9.15); NEUTROPHILS PERCENT AUTO 85 % (41-73); Platelet Count 421 K/mm3 (150-400); RDW Coefficient Variation 18.9 % (11.7-14.2); RDW Standard Deviation 58.5 fL (35.1-46.3); Red Blood Cell Count 3.35 M/mm3 (4.30-5.90); White Blood Cell Count 15.99 K/mm3 (4.00-11.30)
[2021-05-28 22:35] LABS: Alanine Aminotransfer (ALT/SGP 16 U/L (12-78); Albumin, Blood 2.6 g/dL (3.4-5.0); Albumin/Globulin Ratio 0.6 (0.8-1.8); Alk Phos 52 U/L (50-136); Anion Gap 9 mmol/L (6-16); Aspartate Aminotrans (AST/SGOT 30 U/L (12-37); Bilirubin, Total 0.2 mg/dL (0.1-1.0); Blood Urea Nitrogen 38 mg/dL (8-24); CO2, Blood 24 mmol/L (21-32); Calcium, Blood 8.3 mg/dL (8.5-10.1); Chloride, Blood 102 mmol/L (98-108); Creatinine, Blood 1.81 mg/dL (0.60-1.20); Glomerular Filtration Rate 37 (60-); Glucose, Blood 415 mg/dL (70-99); Potassium, Blood 5.6 mmol/L (3.5-5.5); Sodium, Blood 135 mmol/L (136-145); Total Protein, Blood 6.6 g/dL (6.4-8.2)
[2021-05-28 22:49] LABS: Troponin I <0.015 ng/mL (0.000-0.040)
[2021-05-28 23:38] LABS: Influenza A, PCR NEGATIVE (NEGATIVE); Influenza B, PCR NEGATIVE (NEGATIVE); Resp Syncytial Virus, PCR NEGATIVE (NEGATIVE); SARS-Cov-2 (COVID-19) PCR, MMC NEGATIVE (NEGATIVE)
[2021-05-28 23:56] LABS: Source, Urine Clean Catch
[2021-05-28 23:58] LABS: Bilirubin, Urine Neg (Neg); Blood, Urine 1+ (Neg); Glucose Qualitative, Urine 2+ (Neg); Ketones, Urine Neg (Neg); Leukocyte Esterase, Urine Neg (Neg); Nitrite, Urine Neg (Neg); Protein, Urine 3+ (Neg); Urobilinogen, Urine NORM (Normal)
[2021-05-29 00:13] LABS: Appearance, Urine Clear (Clear); Color, Urine Yellow (P-Yellow)
[2021-05-29 00:14] LABS: Bacteria Rare /hpf; Red Blood Cells, Urine 0-2 /hpf (0-2); Squamous Epithelial Cells Few /hpf (Few); White Blood Cells, Urine Rare /hpf (0-5)
[2021-05-29 02:38] LABS: Source, Urine Catheter
[2021-05-29 02:40] LABS: Bilirubin, Urine Neg (Neg); Blood, Urine 5+ (Neg); Glucose Qualitative, Urine Neg (Neg); Ketones, Urine Neg (Neg); Leukocyte Esterase, Urine 1+ (Neg); Nitrite, Urine Neg (Neg); Protein, Urine 2+ (Neg); Urobilinogen, Urine NORM (Normal)
[2021-05-29 02:58] LABS: Appearance, Urine Hazy (Clear); Bacteria Few /hpf; Color, Urine Yellow (P-Yellow); Red Blood Cells, Urine TNTC /hpf (0-2); Squamous Epithelial Cells Few /hpf (Few)
--- NOTE | 2021-05-29 06:35 | NUR ---
END OF SHIFT SUMMARY: PATIENT ARRIVED TO ICU AT 0200 ALERT BUT VERY LETHARGIC. HE WAS FALLING ASLEEP WHEN ASKING ADMISSION QUESTIONS. HIS TEMP IS DOWN SICE HE RECEIVED TYLENOL AND ANTIBIOTICS IN THE ER, CURRENTLY AT 97.9 WITH A TEMP SANTOS. 125 CLOUDY URINE OUTPUT. PATIENT RECEIVED FLUIDS IN THE ER WELL 750ML IN THE ICU. HE IS NOW GETTING NS AT A CONTINUOUS RATE. FLUIDS ONLY HELPED HIS PRESSUREA A LITTLE BIT. LEVOPHED WAS STARTED TO KEEP SBP>95. PER INOCENCIA, IF HE REQUIRES MORE THAN 5MCG OF LEVO, HE WILL NEED A CENTRAL LINE. PIV 20G X2 WORKING GREAT. LACTIC ACID IS TRENDING DOWN IN THE EXPECTED DIRECTION AND IS CURRENTLY AT 3.1. PATIENT REMAINS SLEEPING AND STABLE AT THIS TIME
[2021-05-29 08:26] LABS: BASOPHILS ABSOLUTE AUTO 0.06 K/mm3 (0.00-0.23); BASOPHILS PERCENT AUTO 0 % (0-2); EOSINOPHILS ABSOLUTE AUTO 0.37 K/mm3 (0.00-0.68); EOSINOPHILS PERCENT AUTO 2 % (0-6); Hematocrit 23.2 % (37.0-53.0); Hemoglobin 7.1 g/dL (13.5-17.5); IMMATURE GRAN ABSOLUTE AUTO 0.19 K/mm3 (0.00-0.10); IMMATURE GRAN PERCENT AUTO 1 % (0-1); LYMPHOCYTES ABSOLUTE AUTO 1.58 K/mm3 (0.84-5.20); LYMPHOCYTES PERCENT AUTO 10 % (21-46); MONOCYTES ABSOLUTE AUTO 1.46 K/mm3 (0.16-1.47); MONOCYTES PERCENT AUTO 9 % (4-13); Mean Corpuscular HGB 26.2 pg (26.0-34.0); Mean Corpuscular HGB Conc 30.6 g/dL (31.5-36.5); Mean Corpuscular Volume 86 fL (80-100); Mean Platelet Volume 11.2 fL (9.1-12.4); NEUTROPHILS ABSOLUTE AUTO 12.78 K/mm3 (1.96-9.15); NEUTROPHILS PERCENT AUTO 78 % (41-73); Platelet Count 329 K/mm3 (150-400); RDW Coefficient Variation 19.4 % (11.7-14.2); RDW Standard Deviation 60.8 fL (35.1-46.3); Red Blood Cell Count 2.71 M/mm3 (4.30-5.90); White Blood Cell Count 16.44 K/mm3 (4.00-11.30)
[2021-05-29 10:12] LABS: Albumin/Globulin Ratio 0.6 (0.8-1.8); Bilirubin, Total 0.2 mg/dL (0.1-1.0); Bun/Creatinine Ratio 20.3 (12.0-20.0); Calcium, Blood 7.7 mg/dL (8.5-10.1); Creatinine, Blood 1.97 mg/dL (0.60-1.20); Globulin, Blood 3.6 g/dL (2.2-4.0); Potassium, Blood 5.2 mmol/L (3.5-5.5); Total Protein, Blood 5.6 g/dL (6.4-8.2)
[2021-05-29 14:53] LABS: Bun/Creatinine Ratio 24.4 (12.0-20.0); Calcium, Blood 5.9 mg/dL (8.5-10.1); Creatinine, Blood 1.23 mg/dL (0.60-1.20); Potassium, Blood 5.1 mmol/L (3.5-5.5)
--- NOTE | 2021-05-29 18:41 | NUR ---
END OF SHIFT SUMMARY: Pt calm and cooperative throughout shift. He has intermittantly been off and on 2L O2 via NC. Levophed at 1mcg at this time.
--- NOTE | 2021-05-29 19:15 | NUR ---
ASSUMED CARE OF PT, BEDSIDE REPORT RECEIVED. PT IS RESTING QUIETLY, RECLINING IN BED AND WATCHING FOOTBALL GAME ON TV. PERIPHERAL LEVOPHED IS NOTED AT 1 MCG/MIN TO LEFT FOREARM IV, ABLE TO ASPIRATE BLOOD RETURN AND FLUSHES EASILY. PT DENIES PAIN, DENIES CP/PRESSURE, DENIES SOB/DYSPNEA, DENIES SPUTUM PRODUCTION WITH COUGH, DENIES NUMBNESS/TINGLING, DENIES N/V. HE IS SPEAKING IN FULL SENTENCES WITHOUT VISIBLE INCREASED WORK OF BREATHING, SATS ARE MAINTAINING WITH OXYGEN VIA NASAL CANNULA AT 2 L/MIN, RATE TEENS TO LOW 20S, AUDIBLE CONGESTION IN UPPER AIRWAY IS NOTED TO IMPROVE WITH COUGH, LUNGS ARE COARSE THROUGHOUT. SINUS RHYTHM WITH SINUS ARRHYTHMIA NOTED ON MONITOR, SBP 110S, MAP 69 AT ASSESSMENT, PERIPHERAL PULSES ARE FAINT TO BILAT LOWER EXTREMITIES, 1+ EDEMA NOTED TO FEET BILAT, CAP REFILL 3 SECONDS TO FEET BILAT, SKIN OF LEFT FOOT IS RED WITH INCREASED TEMP NOTED, REMAINS WITHIN LINES OF DEMARKATION. ABD DISTENDED, ACTIVE BOWEL TONES, PT DENIES PAIN ON PALPATION. TEMP PROBE SANTOS IN PLACE DRAINING CLEAR YELLOW URINE TO GRAVITY. CATH CARE DONE AT THIS TIME, PLAN OF CARE FOR THIS SHIFT DISCUSSED WITH PT.
[2021-05-30 03:32] LABS: BASOPHILS ABSOLUTE AUTO 0.04 K/mm3 (0.00-0.23); BASOPHILS PERCENT AUTO 0 % (0-2); EOSINOPHILS ABSOLUTE AUTO 0.51 K/mm3 (0.00-0.68); EOSINOPHILS PERCENT AUTO 4 % (0-6); Hematocrit 23.6 % (37.0-53.0); Hemoglobin 7.3 g/dL (13.5-17.5); IMMATURE GRAN PERCENT AUTO 1 % (0-1); LYMPHOCYTES ABSOLUTE AUTO 1.52 K/mm3 (0.84-5.20); LYMPHOCYTES PERCENT AUTO 12 % (21-46); MONOCYTES ABSOLUTE AUTO 1.02 K/mm3 (0.16-1.47); MONOCYTES PERCENT AUTO 8 % (4-13); Mean Corpuscular HGB 25.9 pg (26.0-34.0); Mean Corpuscular HGB Conc 30.9 g/dL (31.5-36.5); Mean Corpuscular Volume 84 fL (80-100); Mean Platelet Volume 10.6 fL (9.1-12.4); NEUTROPHILS ABSOLUTE AUTO 9.47 K/mm3 (1.96-9.15); NEUTROPHILS PERCENT AUTO 75 % (41-73); NRBC ABSOLUTE 0.02 K/mm3 (0.00-0.02); NRBC Auto 0.2 /100 WBC (0.0-0.2); Platelet Count 349 K/mm3 (150-400); RDW Coefficient Variation 19.4 % (11.7-14.2); RDW Standard Deviation 59.9 fL (35.1-46.3); Red Blood Cell Count 2.82 M/mm3 (4.30-5.90); White Blood Cell Count 12.66 K/mm3 (4.00-11.30)
[2021-05-30 04:32] LABS: Magnesium, Blood 1.4 mg/dL (1.6-2.4)
[2021-05-30 04:34] LABS: Bun/Creatinine Ratio 23.5 (12.0-20.0); Creatinine, Blood 1.19 mg/dL (0.60-1.20); Potassium, Blood 4.9 mmol/L (3.5-5.5)
[2021-05-30 04:38] LABS: Calcium, Blood 8.4 mg/dL (8.5-10.1)
--- NOTE | 2021-05-30 06:33 | NUR ---
PT RESTS QUIETLY THROUGHOUT SHIFT, STATES THAT HE WOULD LIKE TO GO HOME TODAY. LEVOPHED ON STANDBY SINCE 1999 AND PRESSURES HAVE MAINTAINED. ASSIST PROVIDED FOR REPOSITIONING. COUGH STRENGTH HAS IMPROVED WITH GOOD IMPROVEMENT IN VOICE QUALITY IS NOTED. PT IS ALSO HOPEFUL FOR DIET ADVANCE TODAY. HYPOGLYCEMIA WITH HS BLOOD GLUCOSE CHECK WAS NOTED, D50 1/[address] ROBERTSON AND CBG CHECKED Q4 HOUR SINCE, HAS MAINTAINED 75-86 THROUGHOUT REST OF NOC.
--- NOTE | 2021-05-30 08:39 | NUR ---
ASSUMED CARE REPORT FROM ELAINA VALIENTE AT 0700. PT RESTING IN BED. A&OX 3. ANSWERS SIMPLE QUESTIONS APPROPRIATELY. FOLLOWS COMMANDS. OCCASIONAL REPETITIVE QUESTIONING AND NEEDS REMINDED OF CARE PLAN. LUNGS COARSE, WET COUGH. 2L VIA NC. O2 SATS >93%. PT P/W/D. BP STABLE. SEEN BY SPEECH THIS AM, DIET ORDERED CHANGED. PULSES BY DOPPLER TO LEFT FOOT. P/W/D. RIGHT GROIN SITE BRUISED AND GRANULATED. PT STATUS CHANGED TO MED s TELE. DAUGHTER CALLED AND UPDATED. WILL CONTINUE TO MONITOR.
--- NOTE | 2021-05-30 12:39 | NUR ---
Upon receiving a spiritual care referral, Pt. was visited in ICU. The Pt. was alert and welcomed interaction. Using therapeutic listening the pt. identified his daughters as being his primary support system. The pt. addressed his awareness that he needed to heal. The pt. denied pastoral prayer, but welcomed another future visit.
--- NOTE | 2021-05-30 17:41 | NUR ---
SHIFT SUMMARY PT STATUS CHANGED TO MED s TELE. NO ACUTE CHANGES. BP STABLE. WORKED c PT/OT/SPEECH THIS SHIFT. DIET ADVANCED TO PUREE. PT DID NOT LIKE BUT TOLERATED WELL. REMAINED ON 2L VIA NC. LUNGS COARSE. LESS COUGHING NOTED. SANTOS PATENT, DRAINING TO GRAVITY. SKIN UNCHANGED, LEFT PEDAL PULSE BY DOPPLER. WILL CONTINUE TO MONITOR UNTIL REPORT TO ONCOMING NURSE.
--- NOTE | 2021-05-30 22:27 | NUR ---
HAS BEEN PLEASANT, HE IS DENYING ANY COMPLAINTS, HIS LEFT LEG/FOOT WITH PALP.PULSES AND WARM TO TOUCH, RIGHT GROIN NO EVIDENCE OF ANY LEAKING. PT HOT AND SWEATY, WATCHING TV. NEEDS ASSISTANCE WITH THE BED CONTROLS, CAN'T REMEMBER WHICH IS HIS PHONE, WHICH IS HIS CALL LIGHT. VERY PLEASANT. LUNGS WITH COARSE BASES, HE HAS TAKEN HIS OXYGEN OFF BUT IS TOLERATING WITH SATS >90%.
--- NOTE | 2021-05-31 02:02 | NUR ---
WAKES WITH A START AND SAYS HE IS SICK TO HIS STOMACH AND HE NEEDS TO GO HOME. HE WANTS TO CALL HIS DAUGHTER, TRIED TO PERSUADE HIM TO WAIT. MED PER EMAR WITH MUSTAPHA WHILST SPEAKING WITH HIS DAUGHTER. DRY HEAVES, FACE RED, EYES CRUSTY, CLEANED AND COOL WASHCLOTH GIVEN. HE STATES THE NAUSEA IS GETTING BETTER. REASSURANCE GIVEN.
[2021-05-31 04:32] LABS: Alanine Aminotransfer (ALT/SGP 17 U/L (12-78); Albumin, Blood 2.4 g/dL (3.4-5.0); Albumin/Globulin Ratio 0.6 (0.8-1.8); Alk Phos 46 U/L (50-136); Anion Gap 8 mmol/L (6-16); Aspartate Aminotrans (AST/SGOT 21 U/L (12-37); Bilirubin, Total 0.5 mg/dL (0.1-1.0); Blood Urea Nitrogen 16 mg/dL (8-24); Bun/Creatinine Ratio 21.1 (12.0-20.0); CO2, Blood 25 mmol/L (21-32); Calcium, Blood 9.3 mg/dL (8.5-10.1); Chloride, Blood 107 mmol/L (98-108); Creatinine, Blood 0.76 mg/dL (0.60-1.20); Globulin, Blood 4.1 g/dL (2.2-4.0); Glomerular Filtration Rate >60 (60-); Glucose, Blood 210 mg/dL (70-99); Potassium, Blood 5.1 mmol/L (3.5-5.5); Sodium, Blood 140 mmol/L (136-145); Total Protein, Blood 6.5 g/dL (6.4-8.2)
--- NOTE | 2021-05-31 05:51 | NUR ---
HAS BEEN AWAKE MOST OF THE NIGHT. HE SLEPT BRIEFLY, HE HAS BEEN DIAPHORETIC AND C/O BEING HOT T/O THE NIGHT. HE NOW HAS SOME FANS IN THE ROOM TO HELP. HE HAS HAD GOOD URINE OUTPUT, REMAINS WITH COARSE LUNG SOUNDS AND OCC MOIST COUGH. HE HAS BEEN DISORIENTED ON OCCASION T/O THE NIGHT. HE REORIENTS WELL. RIGHT GROIN CONTINUES INTACT, MOIST FROM SWEAT. LEFT FOOT W/ GOOD CIRC CHECKS. DENIES ANY COMPLAINTS SINCE THE 0200 NAUSEA. WILL REPORT TO NEXT SHIFT.
--- NOTE | 2021-05-31 09:57 | NUR ---
Pt has been alert and oriented x2-3, forgetful to situation and was not able to answer the month or year. Pt did vomit after trying a bite of breakfast. Nausea went away afte the one episode of nausea, no prn given at this time.
--- NOTE | 2021-05-31 10:18 | NUR ---
Spoke with Tamiko the pt daughter regarding medications and baseline mentation. She said pt does get confused at home, but has never been diagnosed with dementia. She also mentioned pt takes plavix at home and had been taking xaralto the last week.
--- NOTE | 2021-05-31 17:18 | NUR ---
Pt is A&Ox 2-3, disoriented to time and forgetful of situation on and off. Pt was anxious and starting to become a bit agitated in AM. Home citalopram and prn hydroxazine added. Pt has been pleasant this evening. VSS on RA-2L, titrated to RA today. BP has been elevated today, home meds restarted. Vazquez was removed today. Pt vomited x1 today after a bite of breakfast, prn zofran given. IV cefepime continued. Weigth shifted Q2hrs. CBGs 190-200s, sliding scale given per orders. MACHINE TENDER re-evaluated pt, he remains on the puree diet with only nectar thick liquids. PT refuses to eat the food that is pureed. Has only had a few bites of food today. Pt wild be d/c to SNF, possibly tomorrow.
[2021-05-31 20:24] LABS: SARS-Cov-2 (COVID-19) PCR, MMC NEGATIVE (NEGATIVE)
--- NOTE | 2021-06-01 06:18 | NUR ---
DAVIN HAS BEEN SLEEPING SINCE AROUND 0200, HE DID NOT SLEEP AT ALL LAST NIGHT SO WE HAVE LET HIM BE. HE IS ON THE ROTATION OF 10MIN PER SIDE ON THE BED AND HE HAS BEEN SNORING WITH A SOFT SNORE. HE HAS BEEN CHECKED ON FREQUENTLY AND SEEMS TO BE VERY COMFORTABLE. HE IS DUE A 0600 PROTONIX, BUT I AM WAITING TO GIVE TO HIM UNTIL HE IS MORE AWAKE TO TOLERATE THE PILL IN FOOD. HE CONTINUED TO BE CONFUSED T/O THE NIGHT, NOT REALIZING HE WAS IN THE HOSPITAL AT MIDNIGHT. HE ASKED US WHAT WE WERE DOING HERE. THE ONLY INTAKE HE HAD FOR US LAST NIGHT WAS THE CUP OF APPLESAUCE WITH HIS BEDTIME PILLS. HE DOESN'T WANT ANY LIQUIDS THAT ARE THICKENED. HE HAS BEEN INCONTINENT X2.
[2021-06-01 07:19] LABS: BASOPHILS ABSOLUTE AUTO 0.11 K/mm3 (0.00-0.23); BASOPHILS PERCENT AUTO 1 % (0-2); EOSINOPHILS ABSOLUTE AUTO 0.88 K/mm3 (0.00-0.68); EOSINOPHILS PERCENT AUTO 8 % (0-6); Hemoglobin 8.3 g/dL (13.5-17.5); IMMATURE GRAN PERCENT AUTO 5 % (0-1); LYMPHOCYTES PERCENT AUTO 18 % (21-46); MONOCYTES ABSOLUTE AUTO 1.22 K/mm3 (0.16-1.47); MONOCYTES PERCENT AUTO 11 % (4-13); Mean Corpuscular HGB 25.8 pg (26.0-34.0); Mean Corpuscular HGB Conc 30.7 g/dL (31.5-36.5); Mean Corpuscular Volume 84 fL (80-100); Mean Platelet Volume 10.4 fL (9.1-12.4); NEUTROPHILS ABSOLUTE AUTO 6.05 K/mm3 (1.96-9.15); NEUTROPHILS PERCENT AUTO 57 % (41-73); NRBC ABSOLUTE 0.06 K/mm3 (0.00-0.02); NRBC Auto 0.6 /100 WBC (0.0-0.2); Platelet Count 428 K/mm3 (150-400); RDW Coefficient Variation 18.6 % (11.7-14.2); RDW Standard Deviation 57.1 fL (35.1-46.3); Red Blood Cell Count 3.22 M/mm3 (4.30-5.90); White Blood Cell Count 10.66 K/mm3 (4.00-11.30)
--- NOTE | 2021-06-01 07:48 | NUR ---
ASSUMED PT CARE. PT A/O TO SELF, LOCATION, UNABLE TO CORRECTLY STATE MONTH OR REASON FOR HOSPITALIZATION. PT DENIES PAIN, SOB, N/V, NUMBNESS/TINGLING. BP STABLE. UPON AWAKENING O2 SATS 85% RA, REMINDED PT TO CDB, TAKE DEEP BREATHS. PT PLACED ON 2 LNC AND SATS IMPROVED TO 98%. H/H STABLE THIS AM AT 8.3/27. ENCOURAGING PO INTAKE. IN TO SEE PT. PLAN FOR DC TO SNF TODAY.
--- NOTE | 2021-06-01 10:03 | NUR ---
DATA ANALYTICS CHIEF SCIENTIST AND PHYS THERAPY HAVE SEEN PT. PT HAS EATEN 100% OF DIET AFTER UPGRADING TO [facility] SOFT/MOIST, TOLERATED WELL. PT UP IN CHAIR WITH PHYS THERAPY, REQUIRED 2 PERSON MODERATE ASSIST AND WALKER TO GET BACK TO BED. EDUCATIONAL PSYCHOLOGY PROFESSOR UPDATED.
--- NOTE | 2021-06-01 13:43 | NUR ---
MD HULL NOTIFIED THAT PT LEFT GROIN SITE HAS OPEN AREA AND THAT RN WAS ABLE TO EXTRACT PUS FROM THE SITE. DISCUSSED THIS SITE POTENTIAL CAUSE OF SEPSIS. STATES HE WILL ORDER ULTRASOUND OF GROIN AREA FOR FURTHER EVAL DUE TO CONCERN OF ABSCESS.
--- NOTE | 2021-06-01 15:14 | NUR ---
MD HULL UPDATED ON U/S RESULTS, SAYS HE WILL BE BY SHORTLY TO SEE PT AND THAT PT WILL LIKELY STILL BE ABLE TO DC HOME TODAY.
--- NOTE | 2021-06-01 15:23 | NUR ---
MD HULL IN TO [facility] SITE. STATES PT OKAY TO DC TODAY AND WILL PUT IN DC ORDERS SHORTLY.
--- NOTE | 2021-06-01 15:40 | NUR ---
Pt. was alert and sitting up. Apparently waiting to be discharged, I was welcomed to visit. This was a follow up to a previous visit where the Pt. invited me to return. He definately was unsettled by his diagnosis and was itching to leave. I listened empathetically, and attempted to normalize the pt. experience. At times the pt. seemed to struggle remembering simple details and was visibly frustrated. We were able to explore his family support systems and his countenance lifted. He thanked me for my return visit.
[2021-06-01] MEDS ORDERED: Amaryl1 MG PO (16:34)
[2021-06-01] MEDS ORDERED: AMOCLA875 PO (16:43)
[2021-06-01] MEDS ORDERED: VISBIOME 112.51 EACH PO (16:45)
--- NOTE | 2021-06-01 17:16 | NUR ---
PT DC HOME AT 1715 IN WITH DTR AND HEEL BUILDER TO ASSIST TO CAR. REVIEWED HOME MED CHANGES, NEW MED ORDERS TO BE PICKED UP TOMORROW, HOME HEALTH TO FOLLOW, FOLLOW UP WITH PCP IN 1 WEEK, AND RIGHT GROIN SITE CARE AND MONITORING. PT AND DTR VERBALIZE UNDERSTANDING AND DENY ANY FURTHER NEEDS OR CONCERNS.
== END 2021-06-01 17:20 | disposition home health service (06) | DRG 871 ==
LOC: ER 21:19 → ICUW 21:20 → ER 05-29 00:49 → ICUW 05-29 00:49
PROVIDERS: Emergency Medicine; Student in an Organized Health Care Education/Training Program; ADMIT Internal Medicine
PROC: 3E033XZ Introduction of Vasopressor into Peripheral Vein, Percutaneous Approach (ICD-10-PCS; principal; 2021-05-29)
DX: A41.9 Sepsis, unspecified organism (principal); R65.21 Severe sepsis with septic shock; J96.01 Acute respiratory failure with hypoxia; G92.8 Other toxic encephalopathy; I50.22 Chronic systolic (congestive) heart failure; N17.9 Acute kidney failure, unspecified; E87.2 Acidosis; Z20.822 Contact with and (suspected) exposure to COVID-19; E87.5 Hyperkalemia; I48.0 Paroxysmal atrial fibrillation; I11.0 Hypertensive heart disease with heart failure; N40.0 Benign prostatic hyperplasia without lower urinary tract symptoms; E11.51 Type 2 diabetes mellitus with diabetic peripheral angiopathy without gangrene; E11.65 Type 2 diabetes mellitus with hyperglycemia; I73.9 Peripheral vascular disease, unspecified; Z28.21 Immunization not carried out because of patient refusal; E78.5 Hyperlipidemia, unspecified; M19.90 Unspecified osteoarthritis, unspecified site; I25.10 Atherosclerotic heart disease of native coronary artery without angina pectoris; K21.9 Gastro-esophageal reflux disease without esophagitis; Z79.899 Other long term (current) drug therapy; Z87.891 Personal history of nicotine dependence; Z79.02 Long term (current) use of antithrombotics/antiplatelets; Z79.82 Long term (current) use of aspirin; Z79.4 Long term (current) use of insulin; Z95.1 Presence of aortocoronary bypass graft; Z86.718 Personal history of other venous thrombosis and embolism
CPT/HCPCS: 0241U; 36415; 51701; 51702; 71045; 76857; 80048; 80053; 81001; 82330; 82947; 83605; 83735; 83880; 84145; 84484; 85025; 87040; 87070; 87086; 87205; 92526; 92610; 93005; 93010; 94640; 94644; 94762; 96365; 96366; 96367; 96376; 97110; 97162; 97166; 97530; 99285-25; A9270; C9113; G0378; J0610; J0692; J1650; J1815; J2405; J3370; J3475; J7030; J7040; J7050; J7060; U0004

== ENCOUNTER 2021-07-30 17:29 | Emergency (ER) | payer MEDICARE ==
[~2021-07-30] VITALS: Ht 172.7 cm; Wt 136.1 kg
[~2021-07-30 17:29] MED LIST changes: +AMOCLA875 PO; +Amaryl1 MG PO; +VISBIOME 112.51 EACH PO
[2021-07-30] MEDS ORDERED: CEPH500 PO (17:49)
[2021-07-30] MEDS ORDERED: NYSTATIN15 GM TOP (17:49)
[2021-07-30] MEDS ORDERED: A AND D OINTM42.5 G1 TOP (17:49)
[2021-07-30] MEDS ORDERED: ACET325 PO (18:08)
[2021-08-02] MEDS ORDERED: METF500 PO (15:39)
== END 2021-07-30 18:40 | disposition home or self-care (01) ==
LOC: ER 17:29
DX: L03.311 Cellulitis of abdominal wall (principal); E11.9 Type 2 diabetes mellitus without complications; I25.10 Atherosclerotic heart disease of native coronary artery without angina pectoris; I48.0 Paroxysmal atrial fibrillation; I11.0 Hypertensive heart disease with heart failure; I50.9 Heart failure, unspecified; M19.90 Unspecified osteoarthritis, unspecified site; K21.9 Gastro-esophageal reflux disease without esophagitis; Z87.891 Personal history of nicotine dependence; Z79.82 Long term (current) use of aspirin; Z86.73 Personal history of transient ischemic attack (TIA), and cerebral infarction without residual deficits; Z79.4 Long term (current) use of insulin; Z79.899 Other long term (current) drug therapy
CPT/HCPCS: 99283; A9270

== ENCOUNTER 2021-08-02 15:15 | Inpatient (IN) | payer MEDICARE ==
[~2021-08-02] VITALS: Ht 165.1 cm; Wt 124.7 kg
[~2021-08-02 15:15] MED LIST changes: +A AND D OINTM42.5 G1 TOP; +ACET325 PO; -Amaryl1 MG PO; +CEPH500 PO; +GLIM2 PO; +NYSTATIN15 GM TOP; +PANT20 PO; -PANT40 PO; -TRAZ100 PO; +TRAZ50 PO
[2021-08-02] MEDS ORDERED: METF500C PO (15:39)
[2021-08-02 16:21] LABS: BASOPHILS ABSOLUTE AUTO 0.07 K/mm3 (0.00-0.23); BASOPHILS PERCENT AUTO 0 % (0-2); EOSINOPHILS ABSOLUTE AUTO 1.61 K/mm3 (0.00-0.68); EOSINOPHILS PERCENT AUTO 10 % (0-6); Hematocrit 35.2 % (37.0-53.0); Hemoglobin 10.2 g/dL (13.5-17.5); IMMATURE GRAN ABSOLUTE AUTO 0.19 K/mm3 (0.00-0.10); IMMATURE GRAN PERCENT AUTO 1 % (0-1); LYMPHOCYTES ABSOLUTE AUTO 1.67 K/mm3 (0.84-5.20); LYMPHOCYTES PERCENT AUTO 10 % (21-46); MONOCYTES ABSOLUTE AUTO 1.31 K/mm3 (0.16-1.47); MONOCYTES PERCENT AUTO 8 % (4-13); Mean Corpuscular HGB 22.1 pg (26.0-34.0); Mean Corpuscular Volume 76 fL (80-100); Mean Platelet Volume 11.2 fL (9.1-12.4); NEUTROPHILS ABSOLUTE AUTO 11.23 K/mm3 (1.96-9.15); NEUTROPHILS PERCENT AUTO 70 % (41-73); Platelet Count 453 K/mm3 (150-400); RDW Coefficient Variation 17.6 % (11.7-14.2); RDW Standard Deviation 48.3 fL (35.1-46.3); Red Blood Cell Count 4.62 M/mm3 (4.30-5.90); White Blood Cell Count 16.08 K/mm3 (4.00-11.30)
[2021-08-02 16:51] LABS: Alanine Aminotransfer (ALT/SGP 14 U/L (12-78); Albumin, Blood 2.5 g/dL (3.4-5.0); Albumin/Globulin Ratio 0.6 (0.8-1.8); Alk Phos 53 U/L (50-136); Anion Gap 2 mmol/L (6-16); Aspartate Aminotrans (AST/SGOT 33 U/L (12-37); Bilirubin, Total 0.4 mg/dL (0.1-1.0); Blood Urea Nitrogen 22 mg/dL (8-24); Bun/Creatinine Ratio 22.4 (12.0-20.0); CO2, Blood 28 mmol/L (21-32); Calcium, Blood 8.2 mg/dL (8.5-10.1); Chloride, Blood 106 mmol/L (98-108); Creatinine, Blood 0.98 mg/dL (0.60-1.20); Globulin, Blood 4.5 g/dL (2.2-4.0); Glomerular Filtration Rate >60 (60-); Glucose, Blood 186 mg/dL (70-99); Potassium, Blood 6.2 mmol/L (3.5-5.5); Sodium, Blood 136 mmol/L (136-145)
[2021-08-02 17:15] LABS: Calcium, Ionized (POC) 1.19 mmol/L (1.10-1.46); Chloride (POC) 101 mmol/L (98-108); Creatinine (POC) 1.1 mg/dL (0.8-1.3); Glucose (ISTAT POC) 185 mg/dL (70-99); Hemoglobin (POC) 11.9 g/dL (13.5-17.5); Potassium (POC) 4.5 mmol/L (3.5-5.5); Sodium (POC) 139 mmol/L (135-148); Total CO2 (POC) 27 mmol/L (21-32)
[2021-08-02 18:23] LABS: Source, Urine Voided
[2021-08-02 18:26] LABS: Bilirubin, Urine Neg (Neg); Blood, Urine Neg (Neg); Glucose Qualitative, Urine Neg (Neg); Ketones, Urine Neg (Neg); Leukocyte Esterase, Urine Neg (Neg); Nitrite, Urine Neg (Neg); Protein, Urine 2+ (Neg); Specific Gravity, Urine 1.015 (1.003-1.022); Urobilinogen, Urine NORM (Normal)
[2021-08-02 18:32] LABS: Influenza A, PCR NEGATIVE (NEGATIVE); Influenza B, PCR NEGATIVE (NEGATIVE); Resp Syncytial Virus, PCR NEGATIVE (NEGATIVE); SARS-Cov-2 (COVID-19) PCR, MMC NEGATIVE (NEGATIVE)
[2021-08-02 19:08] LABS: Appearance, Urine Hazy (Clear); Color, Urine Pale Yellow (P-Yellow); White Blood Cells, Urine 0-2 /hpf (0-5)
[2021-08-02 19:09] LABS: Amorphous Light (0-Heavy); Bacteria Mod /hpf; Mucus Light (0-Heavy); Red Blood Cells, Urine 0-2 /hpf (0-2); Squamous Epithelial Cells Rare /hpf (Few)
[2021-08-02] MEDS ORDERED: BUME1 PO (21:32)
--- NOTE | 2021-08-03 05:03 | NUR ---
SHIFT SUMMARY PT ARRIVED TO ROOM FROM ED AT 2014. PT ADMITTED FOR SEPSIS. BILATERAL LOWER EXTREMITY EDEMA. RED AND HOT RASH TO R SIDE, HIPS, GROIN, HIPS, AND PANUS. LOTION AND MEDICATED POWDER PLACED ON RASH. PT IS ON BEDREST AND HAS A HX OF DEMENTIA, DIABETES, AFIB, CHF, CAD, CVA, HTN. PT HAD PNEUMONIA RECENTLY. DAUGHTER BRYAN LOZA IS CAREGIVER [phone]. PT HAS CALL LIGHT WITHIN REACH, AND WILL CONTINUE TO MONITOR.
[2021-08-03 05:09] LABS: BASOPHILS ABSOLUTE AUTO 0.09 K/mm3 (0.00-0.23); BASOPHILS PERCENT AUTO 1 % (0-2); EOSINOPHILS ABSOLUTE AUTO 2.05 K/mm3 (0.00-0.68); EOSINOPHILS PERCENT AUTO 12 % (0-6); Hematocrit 34.1 % (37.0-53.0); Hemoglobin 9.7 g/dL (13.5-17.5); IMMATURE GRAN PERCENT AUTO 1 % (0-1); LYMPHOCYTES PERCENT AUTO 11 % (21-46); MONOCYTES ABSOLUTE AUTO 1.51 K/mm3 (0.16-1.47); MONOCYTES PERCENT AUTO 9 % (4-13); Mean Corpuscular HGB Conc 28.4 g/dL (31.5-36.5); Mean Corpuscular Volume 78 fL (80-100); Mean Platelet Volume 10.8 fL (9.1-12.4); NEUTROPHILS ABSOLUTE AUTO 11.32 K/mm3 (1.96-9.15); NEUTROPHILS PERCENT AUTO 66 % (41-73); Platelet Count 474 K/mm3 (150-400); RDW Coefficient Variation 17.3 % (11.7-14.2); White Blood Cell Count 17.07 K/mm3 (4.00-11.30)
[2021-08-03 06:02] LABS: Alanine Aminotransfer (ALT/SGP 12 U/L (12-78); Albumin, Blood 2.5 g/dL (3.4-5.0); Albumin/Globulin Ratio 0.6 (0.8-1.8); Alk Phos 55 U/L (50-136); Anion Gap 7 mmol/L (6-16); Aspartate Aminotrans (AST/SGOT 14 U/L (12-37); Bilirubin, Total 0.4 mg/dL (0.1-1.0); Blood Urea Nitrogen 24 mg/dL (8-24); Bun/Creatinine Ratio 21.8 (12.0-20.0); CO2, Blood 27 mmol/L (21-32); Calcium, Blood 8.4 mg/dL (8.5-10.1); Chloride, Blood 106 mmol/L (98-108); Globulin, Blood 4.4 g/dL (2.2-4.0); Glomerular Filtration Rate >60 (60-); Glucose, Blood 166 mg/dL (70-99); Sodium, Blood 140 mmol/L (136-145); Total Protein, Blood 6.9 g/dL (6.4-8.2)
[2021-08-03 06:03] LABS: Potassium, Blood 4.2 mmol/L (3.5-5.5)
--- NOTE | 2021-08-03 18:47 | NUR ---
SHIFT SUMMARY PT A/O X1 AND IS CURRENTLY BEDBOUND. SKIN EXCORIATED ON THE PANNUS, LEGS, AND ENTIRE BACK. DAUGHTER TO BEDSIDE TO HELP WITH CARE. PT TO BEGIN WORKING WITH OT/P.T. TOMORROW. CURRENTLY ON PUREE DIET DUE TO DYSPHAGIA. VSS.
[2021-08-03] MEDS ORDERED: Ventolin/Prove6.7 GM INH (19:30)
[2021-08-03] MEDS ORDERED: SPIRONOLACTONE50 MG PO (19:30)
--- NOTE | 2021-08-04 04:36 | NUR ---
SHIFT SUMMARY PT WAS ABLE TO TAKE HIS MEDICATIONS TONIGHT WITH APPLESAUCE. NO SWALLOWING PROBLEMS NOTED. PT ABLE TO DRINK WATER WELL. PT COOPERATIVE AND PLEASANT DURING CARE. PT DID PULL OUT IV IN HIS UPPER L ARM. STILL HAS IV IN LOWER L ARM. REINFORCED THE WRAPPING ON THE REMAINING IV TO HELP DETER PICKING. CALL LIGHT IS WITHIN REACH AND WILL CONTINUE TO MONITOR.
[2021-08-04 05:48] LABS: BASOPHILS ABSOLUTE AUTO 0.06 K/mm3 (0.00-0.23); BASOPHILS PERCENT AUTO 0 % (0-2); EOSINOPHILS ABSOLUTE AUTO 2.81 K/mm3 (0.00-0.68); EOSINOPHILS PERCENT AUTO 18 % (0-6); Hematocrit 33.8 % (37.0-53.0); Hemoglobin 9.9 g/dL (13.5-17.5); IMMATURE GRAN ABSOLUTE AUTO 0.17 K/mm3 (0.00-0.10); IMMATURE GRAN PERCENT AUTO 1 % (0-1); LYMPHOCYTES ABSOLUTE AUTO 2.14 K/mm3 (0.84-5.20); LYMPHOCYTES PERCENT AUTO 13 % (21-46); MONOCYTES ABSOLUTE AUTO 1.12 K/mm3 (0.16-1.47); MONOCYTES PERCENT AUTO 7 % (4-13); Mean Corpuscular HGB 22.2 pg (26.0-34.0); Mean Corpuscular HGB Conc 29.3 g/dL (31.5-36.5); Mean Corpuscular Volume 76 fL (80-100); Mean Platelet Volume 9.9 fL (9.1-12.4); NEUTROPHILS ABSOLUTE AUTO 9.78 K/mm3 (1.96-9.15); NEUTROPHILS PERCENT AUTO 61 % (41-73); NRBC ABSOLUTE 0.02 K/mm3 (0.00-0.02); NRBC Auto 0.1 /100 WBC (0.0-0.2); Platelet Count 434 K/mm3 (150-400); RDW Coefficient Variation 17.6 % (11.7-14.2); Red Blood Cell Count 4.45 M/mm3 (4.30-5.90); White Blood Cell Count 16.08 K/mm3 (4.00-11.30)
[2021-08-04 06:13] LABS: Alanine Aminotransfer (ALT/SGP 13 U/L (12-78); Albumin, Blood 2.4 g/dL (3.4-5.0); Albumin/Globulin Ratio 0.6 (0.8-1.8); Alk Phos 52 U/L (50-136); Anion Gap 6 mmol/L (6-16); Aspartate Aminotrans (AST/SGOT 13 U/L (12-37); Bilirubin, Total 0.4 mg/dL (0.1-1.0); Blood Urea Nitrogen 16 mg/dL (8-24); Bun/Creatinine Ratio 18.1 (12.0-20.0); CO2, Blood 27 mmol/L (21-32); Calcium, Blood 8.2 mg/dL (8.5-10.1); Chloride, Blood 106 mmol/L (98-108); Creatinine, Blood 0.89 mg/dL (0.60-1.20); Globulin, Blood 4.2 g/dL (2.2-4.0); Glomerular Filtration Rate >60 (60-); Glucose, Blood 125 mg/dL (70-99); Potassium, Blood 3.8 mmol/L (3.5-5.5); Sodium, Blood 139 mmol/L (136-145); Total Protein, Blood 6.6 g/dL (6.4-8.2)
--- NOTE | 2021-08-04 16:50 | NUR ---
PATIENT IS ALERT AND ORIENTED AND COOPERATIVE WITH CARE. SPEECH THERAPY UPGRADED HIS DIET TO MECHANICAL SOFT TODAY. HE WORKED WITH PT THIS MORNING AND STOOD AT BEDSIDE. PLAN IS FOR DISCHARGE TO SNF WHEN BED IS AVAILABLE. THE PATIENT'S DAUGHTER WAS AT THE BEDSIDE THIS MORNING AND SPOKE WITH DR. ROBERTSON. WILL CONTINUE TO MONITOR
--- NOTE | 2021-08-05 07:30 | NUR ---
SHIFT SUMMARY A/O X2-3, ABLE TO MAKE NEEDS KNOWN. ANSWERS QUESTIONS APPROPRIATELY. COOPERATIVE WITH CARE. NO C/O PAIN/DISCOMFORT. TELE RUNNING SR IN 70's PER SCALEMAN. APPEARED TO REST MUCH OF THE NIGHT. RASH RED/HOT TO GROIN, BACK, CHEST, AND UPPER ARMS. CLEANSED AND DRIED GROIN; [place]STAT[place] PLACED TO AFFECTED AREA. BED REMAINED IN LOWEST POSITION; ALARM ON. CALL LIGHT AND BELONGINGS WITHIN REACH. REPORT GIVEN TO ONCOMING RN.
--- NOTE | 2021-08-05 19:36 | NUR ---
SHIFT SUMMARY PT UP TO CHAIR FOR MEALS. HAS TROUBLE REMEMBERING TO STAND STRAIGHT UP AND HAS A TENDANCY TO LEAN BACKWARD. GAIT BELT, FWW, AND 2 PERSON ASSIST WITH TRANSFER TO CHAIR. DID BETTER THIS MORNING THAN THIS EVENING. DENIES PAIN OR NAUSEA THROUGH DAY.
[2021-08-06 05:55] LABS: BASOPHILS ABSOLUTE AUTO 0.06 K/mm3 (0.00-0.23); BASOPHILS PERCENT AUTO 0 % (0-2); EOSINOPHILS ABSOLUTE AUTO 2.33 K/mm3 (0.00-0.68); EOSINOPHILS PERCENT AUTO 15 % (0-6); Hematocrit 32.6 % (37.0-53.0); Hemoglobin 9.3 g/dL (13.5-17.5); IMMATURE GRAN ABSOLUTE AUTO 0.31 K/mm3 (0.00-0.10); IMMATURE GRAN PERCENT AUTO 2 % (0-1); LYMPHOCYTES ABSOLUTE AUTO 1.79 K/mm3 (0.84-5.20); LYMPHOCYTES PERCENT AUTO 11 % (21-46); MONOCYTES ABSOLUTE AUTO 0.94 K/mm3 (0.16-1.47); MONOCYTES PERCENT AUTO 6 % (4-13); Mean Corpuscular HGB 21.7 pg (26.0-34.0); Mean Corpuscular HGB Conc 28.5 g/dL (31.5-36.5); Mean Corpuscular Volume 76 fL (80-100); Mean Platelet Volume 10.4 fL (9.1-12.4); NEUTROPHILS ABSOLUTE AUTO 10.55 K/mm3 (1.96-9.15); NEUTROPHILS PERCENT AUTO 66 % (41-73); Platelet Count 506 K/mm3 (150-400); RDW Coefficient Variation 17.8 % (11.7-14.2); RDW Standard Deviation 48.1 fL (35.1-46.3); Red Blood Cell Count 4.29 M/mm3 (4.30-5.90); White Blood Cell Count 15.98 K/mm3 (4.00-11.30)
[2021-08-06 06:17] LABS: Anion Gap 5 mmol/L (6-16); Blood Urea Nitrogen 13 mg/dL (8-24); Bun/Creatinine Ratio 15.6 (12.0-20.0); CO2, Blood 27 mmol/L (21-32); Calcium, Blood 8.1 mg/dL (8.5-10.1); Chloride, Blood 106 mmol/L (98-108); Creatinine, Blood 0.83 mg/dL (0.60-1.20); Glomerular Filtration Rate >60 (60-); Glucose, Blood 84 mg/dL (70-99); Potassium, Blood 3.9 mmol/L (3.5-5.5); Sodium, Blood 138 mmol/L (136-145)
--- NOTE | 2021-08-06 15:59 | NUR ---
SHIFT SUMMARY PATIENT IS ALERT AND ORIENTED X2, PLEASANT AND COOPERATIVE WITH CARE. CALL LIGHT WITHIN REACH. PATIENT WILL NOT CALL. PATIENT YELLS OUT FOR HELP OR FOR DAUGHTER. PATIENT STILL HAS UNKNOWN RASH EXCORIATION/SKIN TEARS ON BACK/CHEST/GROIN. FUNGAL RASH IN PANNUS AREA. POWDER APPLIED PER EMAR. PATIENT WAS UP TO THE BSC X1 THIS SHIFT. NO BM. 2PERSON MAX ASSIST. WEAK GAIT. CONDOM CATH IN PLACE. PATIENT HAS BEEN VOIDING SKIN IS CLEAN AND DRY. RA. NO TELE. PATIENT HAS NEEDED INSULIN COVERAGE PER SLIDING SCALE X1 THIS SHIFT. CBG OF 61 THIS AM. PATIENT IS CURRENTLY WATCHING TV WITH DAUGHTER AT BEDSIDE. NO ACUTE CHANGES. VSS.
[2021-08-07 04:53] LABS: BASOPHILS PERCENT AUTO 1 % (0-2); EOSINOPHILS ABSOLUTE AUTO 0.24 K/mm3 (0.00-0.68); EOSINOPHILS PERCENT AUTO 1 % (0-6); Hematocrit 33.1 % (37.0-53.0); Hemoglobin 9.6 g/dL (13.5-17.5); IMMATURE GRAN ABSOLUTE AUTO 0.52 K/mm3 (0.00-0.10); IMMATURE GRAN PERCENT AUTO 3 % (0-1); LYMPHOCYTES ABSOLUTE AUTO 2.16 K/mm3 (0.84-5.20); LYMPHOCYTES PERCENT AUTO 12 % (21-46); MONOCYTES ABSOLUTE AUTO 1.23 K/mm3 (0.16-1.47); MONOCYTES PERCENT AUTO 7 % (4-13); Mean Corpuscular HGB 22.3 pg (26.0-34.0); Mean Corpuscular Volume 77 fL (80-100); Mean Platelet Volume 10.1 fL (9.1-12.4); NEUTROPHILS ABSOLUTE AUTO 13.53 K/mm3 (1.96-9.15); NEUTROPHILS PERCENT AUTO 76 % (41-73); Platelet Count 536 K/mm3 (150-400); RDW Standard Deviation 48.5 fL (35.1-46.3); Red Blood Cell Count 4.31 M/mm3 (4.30-5.90); White Blood Cell Count 17.78 K/mm3 (4.00-11.30)
[2021-08-07 05:15] LABS: Anion Gap 10 mmol/L (6-16); Blood Urea Nitrogen 16 mg/dL (8-24); Bun/Creatinine Ratio 19.5 (12.0-20.0); CO2, Blood 25 mmol/L (21-32); Calcium, Blood 8.5 mg/dL (8.5-10.1); Chloride, Blood 105 mmol/L (98-108); Creatinine, Blood 0.82 mg/dL (0.60-1.20); Glomerular Filtration Rate >60 (60-); Glucose, Blood 197 mg/dL (70-99); Potassium, Blood 4.3 mmol/L (3.5-5.5); Sodium, Blood 140 mmol/L (136-145)
--- NOTE | 2021-08-07 07:20 | NUR ---
PATIENT'S RASH APPEARS TO BE WORSENING. MEPELIX PLACED ON BUTTOCKS AREA TO PREVENT BREAKDOWN FROM SKIN. PATIENT'S BACK IS DRY AND FLAKY AND SKIN IS FALLING OFF. PATIENT HAS BEEN ITCHING AREAS WHICH HAS INCREASED SKIN TEARS. POWDER PUT ON AREAS THAT APPEAR AFFECTED AND PILLOW CASES PLACED UNDER SKIN FOLDS FOR MOISTURE. WILL REPORT TO RN UPON ARRIVAL.
[2021-08-07] MEDS ORDERED: ELIQUIS5 M2 PO (15:17)
[2021-08-07] MEDS ORDERED: DOCU100 PO (15:18)
[2021-08-07] MEDS ORDERED: HUMALOG MI100 UNIT/2 SC (15:19)
[2021-08-07] MEDS ORDERED: ANTIFUNGAL POWD71 GM TOP (15:21)
[2021-08-07] MEDS ORDERED: PRED20 PO (15:22)
[2021-08-07] MEDS ORDERED: SIME80CH PO (15:23)
[2021-08-07 15:56] LABS: Influenza A, PCR NEGATIVE (NEGATIVE); Influenza B, PCR NEGATIVE (NEGATIVE); Resp Syncytial Virus, PCR NEGATIVE (NEGATIVE); SARS-Cov-2 (COVID-19) PCR, MMC NEGATIVE (NEGATIVE)
--- NOTE | 2021-08-07 16:55 | NUR ---
PT TRANSFERRED TO [facility] [place] [facility] - 2 PERSON PIVOT [place] TO WHEELCHAIR. BELONGINGS SENT. REPORT CALLED TO [facility] 1645 ADAM PT LEFT AT 1635. ATTENDS IN PLACE. MEPELEX TO SACRUM. MICONAZOLE APPLIED TO GROIN FOLDS, SMALL OPEN AREA IN SKIN CREASE R SIDE OF PANUS.
== END 2021-08-07 17:00 | disposition home or self-care (01) | DRG 205 ==
LOC: ER 15:15 → MEDS 19:44
PROVIDERS: Physician Assistant; Student in an Organized Health Care Education/Training Program; ADMIT Internal Medicine
DX: J98.11 Atelectasis (principal); G93.41 Metabolic encephalopathy; J90 Pleural effusion, not elsewhere classified; I50.22 Chronic systolic (congestive) heart failure; L03.317 Cellulitis of buttock; Z20.822 Contact with and (suspected) exposure to COVID-19; Z66 Do not resuscitate; E11.9 Type 2 diabetes mellitus without complications; M54.08 Panniculitis affecting regions of neck and back, sacral and sacrococcygeal region; I11.0 Hypertensive heart disease with heart failure; I48.0 Paroxysmal atrial fibrillation; I73.9 Peripheral vascular disease, unspecified; K21.9 Gastro-esophageal reflux disease without esophagitis; E78.5 Hyperlipidemia, unspecified; M19.90 Unspecified osteoarthritis, unspecified site; I25.2 Old myocardial infarction; I25.10 Atherosclerotic heart disease of native coronary artery without angina pectoris; R13.10 Dysphagia, unspecified; N40.0 Benign prostatic hyperplasia without lower urinary tract symptoms; Z79.82 Long term (current) use of aspirin; Z79.899 Other long term (current) drug therapy; Z95.1 Presence of aortocoronary bypass graft; Z87.891 Personal history of nicotine dependence; Z86.718 Personal history of other venous thrombosis and embolism
CPT/HCPCS: 0241U; 36415; 51701; 71045; 71260; 80047; 80048; 80053; 81001; 82947; 83605; 83880; 84484; 85014; 85025; 87040; 87086; 92526; 92610; 93005; 93010; 94644; 96365-59; 96375-59; 97110; 97162; 97166; 97530; 99285-25; A9270; C9113; J0456; J0696; J1650; J1815; J2060; J2405; J7050; J7512; Q9967